=== PATIENT | female | born 1950 | race Hispanic/Latino ===

== ENCOUNTER 2017-05-27 10:16 | Emergency (ER) | payer MEDICARE, MEDICAID ==
[2017-05-27 10:16] VITALS: BMI 30.7
[2017-05-27 10:23] VITALS: O2SAT 99
--- NOTE | 2017-05-27 11:33 | RAD ---
PROCEDURE: Radiographs of the Right Shoulder HISTORY: Status post fall with pain COMPARISON: No prior. FINDINGS: BONES: No evidence of acute displaced fracture nor dislocation. The osseous structures intact. JOINTS: There appears to be some very minor narrowing of the right acromioclavicular joint. . SOFT TISSUES: Normal. OTHER FINDINGS: Minor multilevel degenerative spondylosis of the thoracic spine IMPRESSION: No evidence acute displaced fracture nor dislocation.
--- NOTE | 2017-05-27 12:13 | C.PDOC ---
History Of Present Illness 67 yr old female with PMHx of schizophrenia, hypercholesterolemia and diabetes, presents to the ER with complaints of right shoulder pain secondary to trip and fall . Family states the patient is supposed to be using a walker to ambulate but went to the bathroom without it and fell. Denies using any pain medicine. Also denies head injury, LOC, chest pain, SOB, back pain, weakness or numbness. Time Seen by Provider: 05/27/17 10:53 Chief Complaint (Nursing): Trauma History Per: Patient, Family History/Exam Limitations: no limitations Onset/Duration Of Symptoms: Sudden Onset (PSYCH ASSISTANT) Severity: Moderate Exacerbating Factor(s): Movement Past Medical History Reviewed: Historical Data, Nursing Documentation, Vital Signs Vital Signs: Last Vital Signs Temp 98.2 F 05/27/17 12:20 Pulse 78 05/27/17 12:20 Resp 16 05/27/17 12:20 BP 149/70 05/27/17 12:20 Pulse Ox 99 05/27/17 12:31 - Medical History PMH: Hypercholesterolemia, Schizophrenia Surgical History: Endoscopy Family History: States: No Known Family Hx - Social History Hx Alcohol Use: No Hx Substance Use: No - Immunization History Hx Tetanus Toxoid Vaccination: No Hx Influenza Vaccination: No Hx Pneumococcal Vaccination: No Review Of Systems Except As Marked, All Systems Reviewed And Found Negative. Cardiovascular: Negative for: Chest Pain Respiratory: Negative for: Shortness of Breath Musculoskeletal: Positive for: Shoulder Pain (Right ). Negative for: Neck Pain , Back Pain Neurological: Negative for: Weakness, Numbness Physical Exam - Physical Exam Appears: Non-toxic, No Acute Distress Skin: Warm, Dry, No Rash Head: Atraumatic, Normacephalic Eye(s): bilateral: Normal Inspection Oral Mucosa: Moist Neck: Normal, Normal ROM, Supple Chest: Symmetrical, No Tenderness Cardiovascular: Rhythm Regular, No Murmur Respiratory: Normal Breath Sounds, No Rales, No Rhonchi, No Wheezing Gastrointestinal/Abdominal: Normal Exam, Soft, No Tenderness, No Guarding, No Rebound Back: Normal Inspection, No CVA Tenderness, No Vertebral Tenderness, No Decreased ROM, No Paraspinal Tenderness Extremity: Tenderness (To the anterior and lateral aspect of right shoulder), Capillary Refill (<2), No Deformity, No Swelling, Other (Right Shoulder: Pain with abduction. Right hand, wrist and elbow non tender with full ROM. ) Extremity: Bilateral: Hips Non-Tender Pulses: Left Radial: Normal, Right Radial: Normal Neurological/Psych: Oriented x3, Normal Speech, Other ((+) Flat affect. ) Gait: Steady ED Course And Treatment O2 Sat by Pulse Oximetry: 99 (RA) Pulse Ox Interpretation: Normal - Other Rad X-Ray - Right Shoulder X-Ray: Viewed By Me, Read By Radiologist Interpretation: PROCEDURE: Radiographs of the Right Shoulder. HISTORY: Status post fall with pain. COMPARISON: No prior. FINDINGS: BONES: No evidence of acute displaced fracture nor dislocation. The osseous structures intact. JOINTS: There appears to be some very minor narrowing of the right acromioclavicular joint. . SOFT TISSUES: Normal. OTHER FINDINGS: Minor multilevel degenerative spondylosis of the thoracic spine. IMPRESSION: No evidence acute displaced fracture nor dislocation. Medical Decision Making Medical Decision Making: PLAN: * X-Ray - Right Shoulder * Tylenol PO Xray reviewed and read by radiologist, negative for fracture or dislocation. Arm sling applied. Patient ambulatory in no distress. She is stable for discharge. Recommend analgesics, ice and rest. Follow up with ortho if the pain persists Disposition - Disposition Referrals: Patrick Elena III, MD [Staff Provider] - Disposition: HOME/ ROUTINE Disposition Time: 12:11 Condition: STABLE Additional Instructions: Take tylenol or ibuprofen as needed for pain Xray reviewed showing no acute fracture or dislocation. Advise to rest, ice and elevate joint. If pain persists, follow up with orthopedic in one week. Instructions: Shoulder Pain (ED) Forms: [employer] (Romanian) - POA Present On Arrival: None - Clinical Impression Clinical Impression: Shoulder contusion - PA / [employer] / Resident Statement MD/DO has reviewed & agrees with the documentation as recorded. - Scribe Statement The provider has reviewed the documentation as recorded by the Scribe Kristel Singh All medical record entries made by the Scribe were at my direction and personally dictated by me. I have reviewed the chart and agree that the record accurately reflects my personal performance of the history, physical exam, medical decision making, and the department course for this patient. I have also personally directed, reviewed, and agree with the discharge instructions and disposition.
[2017-05-27 12:21] VITALS: BP 149/70; PULSE 78; RESP 16; TEMP 98.2
== END 2017-05-27 12:20 | disposition home or self-care (01) ==
LOC: C.ER 10:16
DX: S40.011A Contusion of right shoulder, initial encounter (principal); W01.0XXA Fall on same level from slipping, tripping and stumbling without subsequent striking against object, initial encounter; Y92.008 Other place in unspecified non-institutional (private) residence as the place of occurrence of the external cause

== ENCOUNTER 2017-08-25 21:27 | Inpatient (IN) | payer MEDICARE, MEDICAID ==
[2017-08-25 21:27] VITALS: BMI 30.7
[2017-08-25] MEDS ORDERED: Sodium Chloride 0.9% 1,000 ML IV ONE (22:31)
[2017-08-25] MEDS ORDERED: Iohexol 240 (50 ml) PO ONE (22:32)
[2017-08-25] MEDS ORDERED: Sodium Chloride 0.9% 1,000 ML ONE (22:41)
[2017-08-25] MEDS ORDERED: Iohexol 240 (50 ml) ONE (22:41)
--- NOTE | 2017-08-25 22:46 | C.PDOC ---
History Of Present Illness 67 y/o female c/o abdominal pain for 2 days and chest pain since tonight. Symptoms are associated with nausea and vomiting. Denies fever, chills, SOB, or any other complaints. Time Seen by Provider: 08/25/17 23:05 Chief Complaint (Nursing): Chest Pain History Per: Patient History/Exam Limitations: no limitations Onset/Duration Of Symptoms: Days (2) Current Symptoms Are (Timing): Still Present Severity: Mild Quality: "Pain" Associated Symptoms: Nausea Recent travel outside of the [place]: No Additional History Per: Patient Past Medical History Reviewed: Historical Data, Nursing Documentation, Vital Signs Vital Signs: Last Vital Signs Temp 98.2 F 08/25/17 21:34 Pulse 80 08/26/17 03:51 Resp 22 08/26/17 03:51 BP 185/79 H 08/26/17 04:03 Pulse Ox 97 08/26/17 03:51 - Medical History PMH: Hypercholesterolemia, Schizophrenia Denies: Chronic Kidney Disease Surgical History: Endoscopy Family History: States: Unknown Family Hx - Social History Hx Alcohol Use: No Hx Substance Use: No - Immunization History Hx Tetanus Toxoid Vaccination: No Hx Influenza Vaccination: No Hx Pneumococcal Vaccination: No Review Of Systems Except As Marked, All Systems Reviewed And Found Negative. Constitutional: Negative for: Fever, Chills Cardiovascular: Positive for: Chest Pain Respiratory: Negative for: Shortness of Breath Gastrointestinal: Positive for: Nausea, Vomiting, Abdominal Pain Physical Exam - Physical Exam Appears: Well, Non-toxic Skin: Normal Color Eye(s): bilateral: Normal Inspection, PERRL, EOMI Nose: Normal Oral Mucosa: Moist, No Dry Throat: Normal Neck: Normal Chest: Symmetrical, No Deformity Cardiovascular: Rhythm Regular, No Edema, No Friction Rub, No Murmur Respiratory: Normal Breath Sounds Gastrointestinal/Abdominal: Tenderness (tenderness beth. upper quadrant and LLQ area), No Distention, No Guarding, No Rebound, No Ascites Back: Normal Inspection Extremity: Normal ROM, No Tenderness, No Pedal Edema Neurological/Psych: Oriented x3 ED Course And Treatment - Laboratory Results Result Diagrams: 08/25/17 22:55 08/25/17 22:55 ECG: Interpreted By Me, Viewed By Me ECG Rhythm: Sinus Rhythm, L BBB ECG Interpretation: No Acute Changes, Abnormal Interpretation Of ECG: NSR, LBBB, no significnt change from old tracings. abnormal tracings Rate From EC O2 Sat by Pulse Oximetry: 98 Pulse Ox Interpretation: Normal Medical Decision Making Medical Decision Making: Plans: * CT Abd/Pel with contrast * CT Chest w/o * EKG * Omnipaque * Toradol * Reglan * Zofran * IV fluids * UA Disposition Discussed With DrAnju: Simran Champion Comment: admit to medical try on [facility]- Dr. David duron Doctor Will See Patient In The: Hospital Counseled Patient/Family Regarding: Diagnosis - Disposition Referrals: Dominik Duron MD [Staff Provider] - Disposition: HOSPITALIZED Disposition Time: 04:09 Condition: STABLE Forms: [employer] (Norwegian) - POA Present On Arrival: None - Clinical Impression Clinical Impression: Abdominal pain, Persistent vomiting, Chronic schizophrenia, Chest pain - Scribe Statement The provider has reviewed the documentation as recorded by the Scribe Linda aceves All medical record entries made by the Scribe were at my direction and personally dictated by me. I have reviewed the chart and agree that the record accurately reflects my personal performance of the history, physical exam, medical decision making, and the department course for this patient. I have also personally directed, reviewed, and agree with the discharge instructions and disposition.
[2017-08-25 22:57] LABS: BASO # 0.1 K/uL (0.0-0.2); BASO % 0.5 % (0.0-2.0); EOS % 0.4 % (0.0-4.0); HEMATOCRIT 47.1 % (34.0-47.0); LYMPH # 3.5 K/uL (1.0-4.3); LYMPH % 30.5 % (20.0-40.0); MEAN CELL VOLUME 84.7 fL (81.0-99.0); MEAN CORPUSCULAR HEMOGLOBIN 28.1 pg (27.0-31.0); MEAN CORPUSCULAR HGB CONC 33.2 g/dL (33.0-37.0); MEAN PLATELET VOLUME 9.3 fL (7.2-11.7); MONO # 0.4 K/uL (0.0-0.8); MONO % 3.8 % (0.0-10.0); NRBC % 0.3 % (0.0-2.0); RED CELL DISTRIBUTION WIDTH 12.6 % (11.5-14.5); WHITE BLOOD COUNT 11.5 K/uL (4.8-10.8)
[2017-08-25 23:09] LABS: ALKALINE PHOSPHATASE 65 U/L (38-126); ALT/SGPT 117 U/L (9-52); AST/SGOT 55 U/L (14-36); BILIRUBIN,TOTAL 2.1 mg/dL (0.2-1.3); BLOOD UREA NITROGEN 14 mg/dL (7-17); CALCIUM 9.1 mg/dl (8.6-10.4); CARBON DIOXIDE 24 mmol/L (22-30); CHLORIDE 98 mmol/L (98-107); GFR AFRICAN-AMERICAN > 60; GLUCOSE,RANDOM 134 mg/dL (65-105); POTASSIUM 3.7 mmol/L (3.6-5.2); SODIUM 136 mmol/L (132-148); TOTAL PROTEIN 8.4 g/dL (6.3-8.3)
[2017-08-25 23:16] LABS: ALB/GLOB RATIO 1.2 (1.0-2.1)
[2017-08-26] MEDS ORDERED: Iodixanol 320 MG/ML 100 ML BOTTLE IV ONE ×2 (00:55→01:49)
[2017-08-26] MEDS ORDERED: Morphine 4 MG/ML VIAL IV ONE (01:37)
--- NOTE | 2017-08-26 02:36 | CT ---
EXAM: CT Chest With Intravenous Contrast CT Abdomen and Pelvis With Intravenous Contrast EXAM DATE/TIME: 08/25/2017 10:32 PM CLINICAL HISTORY: 67 years old, female; Pain; Abdominal pain; Generalized; Other: Left chest pain; Patient HX: Pt is unable to tolerate oral contrast & unable to her her breath; Additional info: Abd pain/ vomiting TECHNIQUE: Axial computed tomography images of the chest, abdomen and pelvis with intravenous contrast. All CT scans at this facility use one or more dose reduction techniques, viz.: automated exposure control; ma/kV adjustment per patient size (including targeted exams where dose is matched to indication; i.e. head); or iterative reconstruction technique. All CT scans at this facility use one or more dose reduction techniques, viz.: automated exposure control; ma/kV adjustment per patient size (including targeted exams where dose is matched to indication; i.e. head); or iterative reconstruction technique. Coronal and sagittal reformatted images were created and reviewed. CONTRAST: 100 mL of visipaque administered intravenously. COMPARISON: No relevant prior studies available. FINDINGS: LIMITATIONS: Moderate streak/motion artifact. CHEST: LUNGS: Incidental 7 x 3.5 mm noncalcified pulmonary nodule in the left lung base, image 63/series 3. In low-risk patients (minimal or absent history of smoking or other known risk factors), no follow-up is necessary. For high-risk patients (history of smoking or other known risk factors), an optional chest CT at 12 months could be performed. Mild groundglass density in the lungs bilaterally, dependent in location, most likely representing diffuse dependent atelectasis. No evidence of diffuse pulmonary vascular congestion. PLEURAL SPACE: No pneumothorax or significant pleural effusions seen. HEART: Mild cardiomegaly. Coronary artery calcification. Small amount of fluid in the superior pericardial recess. No evidence of a circumferential pericardial effusion. ABDOMEN: LIVER: Fatty infiltration of the liver. More focal area of low density in the liver, abutting the falciform ligament, most compatible with focal fatty infiltration. GALLBLADDER AND BILE DUCTS: No CT evidence of acute cholecystitis. No evidence of significant biliary ductal dilatation. PANCREAS: No CT evidence of acute pancreatitis. SPLEEN: No acute abnormality of the spleen identified. ADRENALS: No acute abnormality of the adrenal glands. KIDNEYS AND URETERS: 2.4 x 2 cm right renal lesion. This appears mainly composed of fat tissue, with a CT attenuation of -32 Hounsfield units, but it also contains small areas of soft tissue within it. Most likely, this represents a renal angiomyolipoma. No acute abnormality of the kidneys identified. STOMACH AND BOWEL: Colon is mostly decompressed, which limits evaluation for wall thickening. Bowel is otherwise unremarkable in appearance. No acute abnormality of the stomach or duodenum identified. No evidence of bowel obstruction. APPENDIX: Appendix is seen, and is within normal limits in appearance. PELVIS: BLADDER: No acute abnormality of the bladder identified. REPRODUCTIVE: Uterus is surgically absent. No evidence of large adnexal masses. CHEST, ABDOMEN and PELVIS: INTRAPERITONEAL SPACE: No evidence of free intraperitoneal air or fluid. BONES/JOINTS: Bony structures appear demineralized. SOFT TISSUES: No acute abnormality of the visualized soft tissues is seen. VASCULATURE: Exam is nondiagnostic for the detection of thoracic aortic dissection and pulmonary emboli because of suboptimal enhancement of the aorta and pulmonary arteries. No evidence of abdominal aortic aneurysm. LYMPH NODES: No evidence of diffuse lymphadenopathy. IMPRESSION: - No evidence of significant acute process. No definite cause for pain identified. - Fat containing lesion in the right kidney, most likely an angiomyolipoma. - Incidental 5 mm pumonary nodule. See recommendations above. - See above for remaining findings.
--- NOTE | 2017-08-26 08:21 | CP.PCM.CON ---
History of Present Illness - History of Present Illness History of Present Illness: patient seen/examined. consult to follow. longstanding diabetes mellitus, LBBB on EKG. complains of left sided chest pain. Recommend stress test. Past Patient History - Infectious Disease Hx of Infectious Diseases: None - Past Medical History & Family History Past Medical History?: Yes - Past Social History Smoking Status: Never Smoked - CARDIAC Hx Cardiac Disorders: Yes Hx Hypercholesterolemia: Yes - PULMONARY Hx Respiratory Disorders: No Other/Comment: NOTED SPASTIMATIC BODY MOVEMENTS- PT. ON PSY. MEDS - NEUROLOGICAL Hx Neurological Disorder: Yes Hx Dizziness: Yes - HEENT Hx HEENT Problems: No - RENAL Hx Chronic Kidney Disease: No - ENDOCRINE/METABOLIC Hx Endocrine Disorders: Yes Hx Diabetes Mellitus Type 2: Yes - HEMATOLOGICAL/ONCOLOGICAL Hx Blood Disorders: No - INTEGUMENTARY Hx Dermatological Problems: No - MUSCULOSKELETAL/RHEUMATOLOGICAL Hx Musculoskeletal Disorders: No Hx Falls: Yes - GASTROINTESTINAL Hx Gastrointestinal Disorders: Yes Other/Comment: DYSPHAGIA - GENITOURINARY/GYNECOLOGICAL Hx Genitourinary Disorders: No - PSYCHIATRIC Hx Psychophysiologic Disorder: Yes Hx Schizophrenia: Yes Hx Substance Use: No - SURGICAL HISTORY Hx Surgeries: Yes Hx Hysterectomy: Yes - ANESTHESIA Hx Anesthesia: Yes Hx Anesthesia Reactions: No Hx Malignant Hyperthermia: No Meds Allergies/Adverse Reactions: Allergies Allergy/AdvReac Type Severity Reaction Status Date / Time No Known Allergies Allergy Verified 08/25/17 21:40 - Medications Medications: Current Medications Sodium Chloride (Sodium Chloride 0.9%) 1,000 mls @ 100 mls/hr IV .Q10H ONE Stop: 08/26/17 08:30 Last Admin: 08/25/17 22:55 Dose: 100 mls/hr Results - Vital Signs Recent Vital Signs: Last Vital Signs Temp 97.6 F 08/26/17 07:46 Pulse 80 08/26/17 07:46 Resp 20 08/26/17 07:46 BP 183/84 H 08/26/17 07:46 Pulse Ox 95 08/26/17 07:46 - Labs Result Diagrams: 08/25/17 22:55 08/25/17 22:55 Labs: Laboratory Results - last 24 hr 08/25/17 08/25/17 08/26/17 22:55 22:55 07:03 WBC 11.5 H RBC 5.56 H Hgb 15.7 Hct 47.1 H MCV 84.7 D MCH 28.1 MCHC 33.2 RDW 12.6 Plt Count 301 MPV 9.3 Neut % (Auto) 64.8 Lymph % (Auto) 30.5 Kerr % (Auto) 3.8 Eos % (Auto) 0.4 Baso % (Auto) 0.5 Neut # 7.4 H Lymph # 3.5 Kerr # 0.4 Eos # 0.0 Baso # 0.1 Sodium 136 Potassium 3.7 Chloride 98 Carbon Dioxide 24 Anion Gap 17 BUN 14 Creatinine 0.5 L Est GFR ( Amer) > 60 Est GFR (Non-Af Amer) > 60 POC Glucose (mg/dL) 169 H Random Glucose 134 H Calcium 9.1 Total Bilirubin 2.1 H AST 55 H ALT 117 H Alkaline Phosphatase 65 Troponin I < 0.0120 Total Protein 8.4 H Albumin 4.5 Globulin 3.9 Albumin/Globulin Ratio 1.2 Lipase 110
--- NOTE | 2017-08-26 08:22 | CP.PCM.CON ---
History of Present Illness - History of Present Illness History of Present Illness: I was asked to provide evaluation by Dr Champion. Patient is a 67 year old female with PMH HTN, DM who presents with chest pain. The pain is described as epigastric, with radiation to the chest. There is burning of the chest. There is associated dyspnea. Symptoms improve with rest. Review of Systems - Constitutional Constitutional: absent: As Per HPI, Anorexia, Chills, Daytime Sleepiness, Excessive Sweating, Fatigue, Fever, Frequent Falls, Headache, Increased Appetite , Lethargy, Malaise, Night Sweats, Snoring, Sleep Apnea, Weight Gain, Weight Loss, Weakness, Other - EENT Eyes: absent: As Per HPI, Blind Spots, Blurred Vision, Change in Vision, Decreased Night Vision, Diplopia, Discharge, Dry Eye, Exophthalmos, Floaters, Irritation, Itchy Eyes, Loss of Peripheral Vision, Pain, Photophobia, Requires Corrective Lenses, Sees Flashes, Spots in Vision, Tunnel Vision, Other Visual Disturbances, Loss of Vision, Other Ears: absent: As Per HPI, Decreased Hearing, Ear Discharge, Ear Pain, Tinnitus, Abnormal Hearing, Disequilibrium, Dizziness, Other Nose/Mouth/Throat: absent: As Per HPI, Epistaxis, Nasal Congestion, Nasal Discharge, Nasal Obstruction, Nasal Trauma, Nose Pain, Post Nasal Drip, Sinus Pain, Sinus Pressure, Bleeding Gums, Change in Voice, Dental Pain, Dry Mouth, Dysphagia, Halitosis, Hoarsness, Lip Swelling, Mouth Lesions, Mouth Pain, Odynophagia, Sore Throat, Throat Swelling, Tongue Swelling, Facial Pain, Neck Pain, Neck Mass, Other - Breasts Breasts: absent: As Per HPI, Change in Shape, Mass, Pain, Nipple Discharge, Nipple Inversion, Skin Changes, Swelling, Other - Cardiovascular Cardiovascular: Chest Pain, Dyspnea - Respiratory Respiratory: absent: As Per HPI, Cough, Dyspnea, Hemoptysis, Dyspnea on Exertion , Wheezing, Snoring, Stridor, Pain on Inspiration, Chest Congestion, Excessive Mucous Production, Change in Mucous Color, Pain with Coughing, Other - Gastrointestinal Gastrointestinal: absent: As Per HPI, Abdominal Pain, Belching, Bloating, Change in Bowel Habits, Change in Stool Character, Coffee Ground Emesis, Constipation, Cramping, Diarrhea, Dyspepsia, Dysphagia, Early Satiety, Excessive Flatus, Fecal Incontinence, Heartburn, Hematemesis, Hematochezia, Loose Stools, Melena, Nausea, Odynophagia, Temesmus, Vomiting, Other - Genitourinary Genitourinary: absent: As Per HPI, Change in Urinary Stream, Difficulty Urinating, Dysuria, Flank Pain, Hematuria, Pyuria, Nocturia, Urinary Incontinence, Urinary Frequency, Urinary Hesitance, Urinary Urgency, Voiding Freq/Small Amts, Freq UTI, Hx Renal/Bladder Calculi, Hx /Renal Surgery, Bladder Distension, Other - Musculoskeletal Musculoskeletal: absent: As Per HPI, Abnormal Gait, Arthralgias, Atrophy, Back Pain, Deformity, Joint Swelling, Limited Range of Motion, Loss of Height, Muscle Cramps, Muscle Weakness, Myalgias, Neck Pain, Numbness, Radiating Pain into Limb, Stiffness, Tingling, Other - Integumentary Integumentary: absent: As Per HPI, Acne, Alopecia, Bleeding Lesions, Change in Hair, Change in Nails, Change in Pigmentation, Changing Lesions, Dry Skin, Erythema, Furuncle, Hirsutism, Lesions, New Lesions, Non-Healing Lesions, Photosensitivity, Pruritus, Rash, Skin Pain, Skin Ulcer, Sores, Striae, Swelling , Unusual Bruising, Wounds, Jaundice, Other - Neurological Neurological: absent: As Per HPI, Abnormal Gait, Abnormal Hearing, Abnormal Movements, Abnormal Speech, Behavioral Changes, Burning Sensations, Confusion, Convulsions, Disequilibrium, Dizziness, Numbness, Focal Weakness, Frequent Falls , Headaches, Lack of Coordination, Loss of Vision, Memory Loss, Paresthesias, Radicular Pain, Restless Legs, Sensory Deficit, Syncope, Tingling, Tremor, Vertigo, Weakness, Other Visual Disturbances, Other - Psychiatric Psychiatric: absent: As Per HPI, Abnormal Sleep Pattern, Anhedonia, Anxiety, Auditory Hallucinations, Behavioral Changes, Change in Appetite, Change in Libido, Confusion, Depression, Difficulty Concentrating, Hallucinations, Homicidal Ideation, Hopelessness, Irritability, Memory Loss, Mood Swings, Panic Attacks, Paranoia, Suicidal Ideation, Visual Hallucinations, Tactile Hallucinations, Other - Endocrine Endocrine: absent: As Per HPI, Change in Body Appearance, Change in Libido, Cold Intolorance, Deepening of Voice, Excessive Sweating, Fatigue, Flushing, Heat Intolorance, Increase in Ring/Shoe/Hat Size, Palpitations, Polydipsia, Polyphagia, Polyuria, Other - Hematologic/Lymphatic Hematologic: absent: As Per HPI, Easy Bleeding, Easy Bruising, Lymphadenopathy, Other Past Patient History - Infectious Disease Hx of Infectious Diseases: None - Past Medical History & Family History Past Medical History?: Yes - Past Social History Smoking Status: Never Smoked - CARDIAC Hx Cardiac Disorders: Yes Hx Hypercholesterolemia: Yes - PULMONARY Hx Respiratory Disorders: No Other/Comment: NOTED SPASTIMATIC BODY MOVEMENTS- PT. ON PSY. MEDS - NEUROLOGICAL Hx Neurological Disorder: Yes Hx Dizziness: Yes - HEENT Hx HEENT Problems: No - RENAL Hx Chronic Kidney Disease: No - ENDOCRINE/METABOLIC Hx Endocrine Disorders: Yes Hx Diabetes Mellitus Type 2: Yes - HEMATOLOGICAL/ONCOLOGICAL Hx Blood Disorders: No - INTEGUMENTARY Hx Dermatological Problems: No - MUSCULOSKELETAL/RHEUMATOLOGICAL Hx Musculoskeletal Disorders: No Hx Falls: Yes - GASTROINTESTINAL Hx Gastrointestinal Disorders: Yes Other/Comment: DYSPHAGIA - GENITOURINARY/GYNECOLOGICAL Hx Genitourinary Disorders: No - PSYCHIATRIC Hx Psychophysiologic Disorder: Yes Hx Schizophrenia: Yes Hx Substance Use: No - SURGICAL HISTORY Hx Surgeries: Yes Hx Hysterectomy: Yes - ANESTHESIA Hx Anesthesia: Yes Hx Anesthesia Reactions: No Hx Malignant Hyperthermia: No Meds Home Medications: Home Medication List Medication Instructions Recorded Confirmed Type Acetaminophen [Tylenol 325mg tab] 650 mg PO STAT tab 08/30/17 Rx Aspirin [Ecotrin] 81 mg PO DAILY tabec 08/30/17 Rx Bethanechol [Urecholine] 25 mg PO BID tab 08/30/17 Rx Glimepiride [amaRYL] 4 mg PO BIDAC tab 08/30/17 Rx Insulin Aspart [Novolog] See Protocol SC ACHS 30 Days #1 ml 08/30/17 Rx Lactulose [Enulose] 20 gm PO HS PRN #1 udc 08/30/17 Rx Ondansetron [Zofran] 4 mg PO Q8H PRN #1 tab 08/30/17 Rx Pantoprazole [Protonix] 40 mg PO DAILY #1 ect 08/30/17 Rx Perphenazine 16 mg PO HS tab 08/30/17 Rx Polyethylene Glycol 3350 [Miralax] 17 gm PO DAILY packet 08/30/17 Rx Trihexyphenidyl [Artane] 2 mg PO BID tab 08/30/17 Rx clonazePAM [Klonopin] 0.5 mg PO TID tab 08/30/17 Rx metFORMIN [glucOPHAGE] 500 mg PO DAILY@0800 tab 08/30/17 Rx Allergies/Adverse Reactions: Allergies Allergy/AdvReac Type Severity Reaction Status Date / Time No Known Allergies Allergy Verified 08/25/17 21:40 - Medications Medications: Current Medications Sodium Chloride (Sodium Chloride 0.9%) 1,000 mls @ 100 mls/hr IV .Q10H ONE Stop: 08/26/17 08:30 Last Admin: 08/25/17 22:55 Dose: 100 mls/hr Physical Exam - Constitutional Appears: Non-toxic - Head Exam Head Exam: NORMAL INSPECTION - Eye Exam Eye Exam: Normal appearance - ENT Exam ENT Exam: Mucous Membranes Moist - Neck Exam Neck exam: Positive for: Full Rom - Respiratory Exam Respiratory Exam: NORMAL BREATHING PATTERN - Cardiovascular Exam Cardiovascular Exam: REGULAR RHYTHM - GI/Abdominal Exam GI & Abdominal Exam: Normal Bowel Sounds - Rectal Exam Rectal Exam: Deferred - Extremities Exam Extremities exam: Positive for: pedal edema - Back Exam Back exam: NORMAL INSPECTION - Neurological Exam Neurological exam: Alert - Psychiatric Exam Psychiatric exam: Normal Affect - Skin Skin Exam: Normal Color Results - Vital Signs Recent Vital Signs: Last Vital Signs Temp 97.6 F 08/26/17 07:46 Pulse 80 08/26/17 07:46 Resp 20 08/26/17 07:46 BP 183/84 H 08/26/17 07:46 Pulse Ox 95 08/26/17 07:46 - Labs Result Diagrams: 08/30/17 11:14 08/30/17 11:14 Labs: Laboratory Results - last 24 hr 08/25/17 08/25/17 08/26/17 22:55 22:55 07:03 WBC 11.5 H RBC 5.56 H Hgb 15.7 Hct 47.1 H MCV 84.7 D MCH 28.1 MCHC 33.2 RDW 12.6 Plt Count 301 MPV 9.3 Neut % (Auto) 64.8 Lymph % (Auto) 30.5 [place] % (Auto) 3.8 Eos % (Auto) 0.4 Baso % (Auto) 0.5 Neut # 7.4 H Lymph # 3.5 [place] # 0.4 Eos # 0.0 Baso # 0.1 Sodium 136 Potassium 3.7 Chloride 98 Carbon Dioxide 24 Anion Gap 17 BUN 14 Creatinine 0.5 L Est GFR ( Amer) > 60 Est GFR (Non-Af Amer) > 60 POC Glucose (mg/dL) 169 H Random Glucose 134 H Calcium 9.1 Total Bilirubin 2.1 H AST 55 H ALT 117 H Alkaline Phosphatase 65 Troponin I < 0.0120 Total Protein 8.4 H Albumin 4.5 Globulin 3.9 Albumin/Globulin Ratio 1.2 Lipase 110 - EKG Data EKG Interpreted by: Myself EKG shows normal: Sinus rhythm Assessment & Plan (1) HTN (hypertension) Assessment and Plan: blood pressure control Status: Acute (2) Diabetes mellitus Assessment and Plan: risk factor for CAD Status: Acute (3) Chest pain Assessment and Plan: given symptoms and risk factors, recommend nuclear stress test. daughter understands Status: Acute
[2017-08-26] MEDS ORDERED: Aminophylline 25 mg/ml Inj ONE (09:51)
--- NOTE | 2017-08-26 13:19 | CP.PCM.CON ---
History of Present Illness - History of Present Illness History of Present Illness: 67 years old female with hx DM, HLD, paranoid schizoprenia, presents for chest pain with nausea, vomiting, and abdominal pain. Pt is a poor historian, history primarily obtained form prior charts and daughter. As per daughter, pt started having nausea and bilious, but non-bloody vomiting episodes since yesterday. Pt has also been complaining of vague lower abdominal pain for past 3 days, not related to eating. Has had decreased appetite and dyspepsia, but denies fever, chills, sob, hematemesis, cough, diarrhea, constipation, hematochezia, melena, jaundice. Last BM yesterday. Pt had a previous EGD at [facility] on 07/11/2016, for dysphagia, found to have chronic active gastritis, positive for H Pylori. As per daughter, pt was treated with antibiotics. But unsure if pt has a GI doctor or was re-tested post treatment. No prior colonoscopy. Denies sick contacts or recent travel. In ED, pt hypertensive but otherwise stable, trop neg x 1, elevated LFTs: AST 55 , ALT 117, t.bili 2.1. Previously in 07/2016, t bili 1.5, AST 93, ALT 141. As per daughter, pt has had transaminitis in the past, due to multiple antipsychotic and oral antidiabetic meds like Clonazepam, Perphenazine, Acarbose. Today, pt had one small episode of vomiting while doing the stress test this AM. Pt currently complains of some lower abdominal pain, but denies nausea. PMH: DM, HLD, paranoid schizophrenia PSH: hysterectomy ALL: NKA FH: no history of colon cancer SH: Lives with in house. Immobile patient, mostly in bed. Can walk. Denies alcohol, tobacco, marijuana use. Review of Systems - Review of Systems All systems: reviewed and no additional remarkable complaints except Review of Systems: as per HPI Past Patient History - Infectious Disease Hx of Infectious Diseases: None - Past Medical History & Family History Past Medical History?: Yes - Past Social History Smoking Status: Never Smoked - CARDIAC Hx Cardiac Disorders: Yes Hx Hypercholesterolemia: Yes - PULMONARY Hx Respiratory Disorders: No Other/Comment: NOTED SPASTIMATIC BODY MOVEMENTS- PT. ON PSY. MEDS - NEUROLOGICAL Hx Neurological Disorder: Yes Hx Dizziness: Yes - HEENT Hx HEENT Problems: No - RENAL Hx Chronic Kidney Disease: No - ENDOCRINE/METABOLIC Hx Endocrine Disorders: Yes Hx Diabetes Mellitus Type 2: Yes - HEMATOLOGICAL/ONCOLOGICAL Hx Blood Disorders: No - INTEGUMENTARY Hx Dermatological Problems: No - MUSCULOSKELETAL/RHEUMATOLOGICAL Hx Musculoskeletal Disorders: No Hx Falls: Yes - GASTROINTESTINAL Hx Gastrointestinal Disorders: Yes Other/Comment: DYSPHAGIA - GENITOURINARY/GYNECOLOGICAL Hx Genitourinary Disorders: No - PSYCHIATRIC Hx Psychophysiologic Disorder: Yes Hx Schizophrenia: Yes Hx Substance Use: No - SURGICAL HISTORY Hx Surgeries: Yes Hx Hysterectomy: Yes - ANESTHESIA Hx Anesthesia: Yes Hx Anesthesia Reactions: No Hx Malignant Hyperthermia: No Meds Allergies/Adverse Reactions: Allergies Allergy/AdvReac Type Severity Reaction Status Date / Time No Known Allergies Allergy Verified 08/25/17 21:40 - Medications Medications: Current Medications Aspirin (Ecotrin) 81 mg PO DAILY [facility] Last Admin: 08/26/17 11:45 Dose: 81 mg Clonazepam (Klonopin) 0.5 mg PO TID [facility] Glimepiride (Amaryl) 4 mg PO BIDAC [facility] Last Admin: 08/26/17 11:45 Dose: 4 mg Heparin Sodium (Porcine) (Heparin) 5,000 units SC Q12 [facility] Home Med (Patient's Own Medication) 1 tab PO TID [facility] Metformin HCl (Glucophage) 500 mg PO DAILY@0800 [facility] Perphenazine (Perphenazine) 16 mg PO HS [facility] Trihexyphenidyl HCl (Artane) 2 mg PO BID [facility] Last Admin: 08/26/17 11:45 Dose: 2 mg Physical Exam - Constitutional Appears: Older Than Stated Age, Chronically Ill - Head Exam Head Exam: ATRAUMATIC, NORMOCEPHALIC - Eye Exam Eye Exam: EOMI Pupil Exam: PERRL - ENT Exam ENT Exam: Mucous Membranes Moist - Respiratory Exam Respiratory Exam: Clear to Auscultation Bilateral - Cardiovascular Exam Cardiovascular Exam: RRR, +S1, +S2 - GI/Abdominal Exam GI & Abdominal Exam: Normal Bowel Sounds, Tenderness. absent: Distended, Guarding, Rebound, Rigid Additional comments: TTP diffusely, more in epigastric area. - Extremities Exam Extremities exam: Negative for: calf tenderness, pedal edema - Back Exam Back exam: absent: CVA tenderness (L), CVA tenderness (R) - Neurological Exam Neurological exam: Alert, Oriented x3 - Skin Skin Exam: Dry, Warm Results - Vital Signs Recent Vital Signs: Last Vital Signs Temp 97.6 F 08/26/17 07:46 Pulse 80 08/26/17 07:46 Resp 20 08/26/17 07:46 BP 183/84 H 08/26/17 07:46 Pulse Ox 95 08/26/17 07:46 - Labs Result Diagrams: 08/25/17 22:55 08/25/17 22:55 Labs: Laboratory Results - last 24 hr 08/25/17 08/25/17 08/26/17 22:55 22:55 07:03 WBC 11.5 H RBC 5.56 H Hgb 15.7 Hct 47.1 H MCV 84.7 D MCH 28.1 MCHC 33.2 RDW 12.6 Plt Count 301 MPV 9.3 Neut % (Auto) 64.8 Lymph % (Auto) 30.5 [place] % (Auto) 3.8 Eos % (Auto) 0.4 Baso % (Auto) 0.5 Neut # 7.4 H Lymph # 3.5 [place] # 0.4 Eos # 0.0 Baso # 0.1 Sodium 136 Potassium 3.7 Chloride 98 Carbon Dioxide 24 Anion Gap 17 BUN 14 Creatinine 0.5 L Est GFR ( Amer) > 60 Est GFR (Non-Af Amer) > 60 POC Glucose (mg/dL) 169 H Random Glucose 134 H Calcium 9.1 Total Bilirubin 2.1 H AST 55 H ALT 117 H Alkaline Phosphatase 65 Troponin I < 0.0120 Total Protein 8.4 H Albumin 4.5 Globulin 3.9 Albumin/Globulin Ratio 1.2 Lipase 110 08/26/17 12:28 WBC RBC Hgb Hct MCV MCH MCHC RDW Plt Count MPV Neut % (Auto) Lymph % (Auto) [place] % (Auto) Eos % (Auto) Baso % (Auto) Neut # Lymph # [place] # Eos # Baso # Sodium Potassium Chloride Carbon Dioxide Anion Gap BUN Creatinine Est GFR ( Amer) Est GFR (Non-Af Amer) POC Glucose (mg/dL) 189 H Random Glucose Calcium Total Bilirubin AST ALT Alkaline Phosphatase Troponin I Total Protein Albumin Globulin Albumin/Globulin Ratio Lipase Assessment & Plan - Assessment and Plan (Free Text) Assessment: 67 years old female with PMH DM, schizophrenia, presents for nausea, vomiting, abdominal pain and elevated LFTs: Plan: - 2/2 likely usage of hepatotoxic drugs (clonazepam, acarbose, glimerperide and metformin) vs infectious vs autoimmune etiology vs GERD vs gastritis vs gastroenteritis - CT abd pelvis chest 08/25/17: fat containing lesion in right kidney. Incidental 5 mm pulm nodule. - EGD 07/11/2016: chronic active gastritis, + h. pylori. No intestinal metaplasia. - As per daughter, pt was treated with triple therapy for H.pylori. But not sure if she was tested after treatment. - Protonix IV daily, Zofran q6H - Pt passed bedside swallow eval - Hgb A1C, Hepatitis and autoimmune workup f/u - Consider different antipsychotic agents in light of transaminitis. Will discuss with GI fellow and attending, Dr Collins. Jovana Braun, PGY1 - Date & Time Date: 08/26/17 Time: 13:30
[2017-08-26 15:12] LABS: INR 1.1
[2017-08-26] MEDS: ACARBOSE 50 MG PO SCH (17:34)
--- NOTE | 2017-08-26 17:54 | CON ---
ADDENDUM This is addendum to physiatric consultation PHYSICAL EXAMINATION: VITAL SIGNS: 97.6, pulse rate is 80, blood pressure is 183/84, respirations 20, oxygen sat is 95%. LABORATORY DATA: Blood workup estes, we will check his thyroid. The patient has chronic history of depression, anxiety on multiple physic meds as well as B12 low level and folate. Folate is this part of the workup. Israel Tristan MD
[2017-08-26 19:18] LABS: THYROID STIMULATING HORMONE 0.37 mIU/L (0.46-4.68)
[2017-08-26 19:53] LABS: FOLATE 16.6 ng/mL
--- NOTE | 2017-08-27 02:09 | CON ---
PSYCHIATRIC CONSULTATION DATE: 08/26/2017 CHIEF COMPLAINT AND REASON FOR CONSULTATION: The patient is referred by Dr. Champion for evaluation and co-management. The patient has a long history of schizoaffective disorder, bipolar type, on multiple psych meds as well as history of diabetes. The patient has been my patient in the office for many many years and seen for meds management. HISTORY OF PRESENT ILLNESS: This is the case of a 67-year-old female who lives with her . The patient has been my patient for more than 10 years with history of schizoaffective disorder, bipolar type, has been maintained on Trilafon 16 mg at bedtime, Klonopin 0.5 mg 3 times a day, and Artane 2 mg b.i.d. The patient was brought in by the daughter as the patient has been complaining of abdominal pain, chest pain, and also may not be taking her psych medications faithfully. Her is currently at [facility] for subacute rehab due to cardiac problems and the patient needs constant assistance from her . According to the daughter, the patient has one daughter, the patient has been compliant with her medication, but lately has been missing some of her medications. Her blood sugar seems to be controlled and the patient is not eating well. The patient also wants to see her who is in the subacute rehab. She states that she is not eating well and also reports she has a poor appetite. The patient, on admission, was complaining of chest pain and nausea and vomiting. The patient was seen by Dr. Silva, warehouse and receiving supervisor, and undergoing cardiac workup. Psych estes, the patient is at her baseline, but redirectable and compliant with meds in the hospital. PAST PSYCHIATRIC HISTORY: As stated, has long history of schizoaffective disorder, bipolar type, the patient used to be treated by Dr. Yan. The patient has persistent delusions. She is the Governor's despite being . The patient also states she sees Dr. Yna daily. Dr. Yan is her doctor for many years, and claims her former MD is constantly talking to her. Her former doctor has gone into [facility]. PAST MEDICAL HISTORY: History of diabetes, history of cholesterol problems. ALLERGIES: THE PATIENT HAS NO KNOWN ALLERGIES. PSYCHOSOCIAL HISTORY: Denies any psychosocial history. The patient lives with her ;they have been for more than 45 years. They only have one daughter and the daughter is a teacher. The patient has been disabled due to her psych issues. CURRENT MEDICATIONS: List of current medication includes, Amaryl, Artane 2 mg b.i.d., aspirin, Glucophage, heparin, Klonopin 0.5 mg 3 times a day, and also perphenazine 16 mg at bedtime. I did try to change her to Seroquel recently, but the patient did not tolerate it well. LABORATORY DATA: On review of her labs, WBC is 11.5, H and H is 15.7/47.1. The patient's creatinine is 0.5. Her liver function test: AST 55, ALT is 117, lipase is 110. Her blood sugar, the last one is 189. The patient used to run sugars above 400 and 500 before, but seems to be controlled with current meds. REVIEW OF SYSTEMS: GENERAL: The patient is alert, oriented x3, screaming at times. This is close to her baseline. Seen with her daughter. The patient states she wants to see her . SKIN: No diaphoresis. HEENT: No headache. No dizziness. NECK: Supple. RESPIRATORY: No dyspnea. No chest pain. CARDIOVASCULAR: The palpitation was intact. GASTROINTESTINAL: No nausea, no vomiting. EXTREMITIES: The patient is moving extremities. MUSCULOSKELETAL: Feels weak. NEUROLOGIC: Alert, oriented x3. GENITOURINARY: No dysuria. MENTAL STATUS EXAMINATION: Elderly female of [place] descent, height 5 feet 1 inches, weighs 170 pounds, obese, oriented x3. Mood is anxious. Affect is reactive. Speech is spontaneous. Thought process coherent. Thought content: No suicidal or homicidal ideation. Has chronic delusions that she is the Governor's and she is talking to Dr. Yan every day. Attention and memory seems to be fair. Insight and judgment is fair. Impulse control is fair. IMPRESSION: Schizoaffective disorder, bipolar type as well as history of diabetes, chest pain. PLAN AND RECOMMENDATION: The patient is seen and meds reviewed. The patient is currently undergoing cardiac workup as well as gastrointestinal workup. Psych estes, we will keep her on the same medication; Trilafon 16 mg at bedtime, Klonopin 0.5 mg 3 times a day, and the Artane 2 mg b.i.d. These have been her medicines for years. The patient is at her baseline. She has some residual psychotic symptoms that has been persistent for years, but the patient is manageable. Also monitor blood sugar, I discussed with the patient and her daughter. I did suggest that the patient may go for subacute rehab at [facility] for reconditioning as well as the patient needs assistance at home. The patient cannot function by herself, needs constant redirection, given her the psych history. If she ever goes to [facility], I do suggest that she will be in a different floor and not with her , to give the a break. The patient's has been sick lately and has been having some heart problems. The patient needs somebody to monitor her meds as well as reconditioning while also recovers. The patient has agreed to go to [facility] as well as her daughter. There is no need to change her medications for now, but the patient just needs to make sure that she is taking her meds. She has been compliant for most of her medications, but with the loss of her being in the rehab, the patient may need to be in a structured setting. Israel Tristan MD CATHERINE
[2017-08-27] MEDS: ACARBOSE 50 MG PO SCH ×3 (09:00→17:26)
--- NOTE | 2017-08-27 09:06 | CP.PCM.PN ---
Subjective - Date & Time of Evaluation Date of Evaluation: 08/27/17 Time of Evaluation: 09:05 - Subjective Subjective: stress test reviewed. No evidence of myocardial ischemia Normal LV function. Objective - Vital Signs/Intake and Output Vital Signs (last 24 hours): Temp Pulse Resp BP Pulse Ox 98 F 89 20 159/78 H 95 08/26/17 23:11 08/26/17 23:11 08/26/17 23:11 08/26/17 23:11 08/26/17 23:11 Intake and Output: 08/27/17 08/27/17 06:59 18:59 Intake Total 250 Balance 250 - Medications Medications: Current Medications Aspirin (Ecotrin) 81 mg PO DAILY [facility] Last Admin: 08/26/17 11:45 Dose: 81 mg Clonazepam (Klonopin) 0.5 mg PO TID [facility] Last Admin: 08/26/17 17:35 Dose: 0.5 mg Glimepiride (Amaryl) 4 mg PO BIDAC [facility] Last Admin: 08/27/17 08:25 Dose: 4 mg Heparin Sodium (Porcine) (Heparin) 5,000 units SC Q12 [facility] Home Med (Patient's Own Medication) 1 tab PO TIDCC [facility] Last Admin: 08/26/17 17:34 Dose: 1 tab Metformin HCl (Glucophage) 500 mg PO DAILY@0800 [facility] Last Admin: 08/27/17 08:35 Dose: 500 mg Ondansetron HCl (Zofran Inj) 4 mg IVP Q6H [facility] Last Admin: 08/27/17 08:35 Dose: 4 mg Pantoprazole Sodium (Protonix Inj) 40 mg IVP DAILY [facility] Last Admin: 08/26/17 14:12 Dose: 40 mg Perphenazine (Perphenazine) 16 mg PO HS [facility] Last Admin: 08/26/17 21:05 Dose: 16 mg Trihexyphenidyl HCl (Artane) 2 mg PO BID [facility] Last Admin: 08/26/17 17:36 Dose: 2 mg - Labs Labs: 08/25/17 22:55 08/25/17 22:55 PT 12.4 SECONDS (9.7-12.2) H 08/26/17 14:41 INR 1.1 08/26/17 14:41 APTT 29 SECONDS (21-34) 08/26/17 14:41
--- NOTE | 2017-08-27 10:09 | CP.PCM.CON ---
<Jovana Braun - Last Filed: 08/27/17 10:26> History of Present Illness - History of Present Illness History of Present Illness: Jovana Braun, PGY1, GI Consult Note for Dr Polo: CC: nausea, vomiting, abdominal pain, chest pain 67 years old female with hx DM, HLD, paranoid schizoprenia, presents for chest pain with nausea, vomiting, and abdominal pain. Pt is a poor historian, history primarily obtained form prior charts and daughter. As per daughter, pt started having nausea and bilious, but non-bloody vomiting episodes since yesterday. Pt has also been complaining of vague lower abdominal pain for past 3 days, not related to eating. Has had decreased appetite and dyspepsia, but denies fever, chills, sob, hematemesis, cough, diarrhea, constipation, hematochezia, melena, jaundice. Last BM yesterday. Pt had a previous EGD at [facility] on 07/11/2016, for dysphagia, found to have chronic active gastritis, positive for H Pylori. As per daughter, pt was treated with antibiotics. But unsure if pt has a GI doctor or was re-tested post treatment. No prior colonoscopy. Denies sick contacts or recent travel. In ED, pt hypertensive but otherwise stable, trop neg x 1, elevated LFTs: AST 55 , ALT 117, t.bili 2.1. Previously in 07/2016, t bili 1.5, AST 93, ALT 141. As per daughter, pt has had transaminitis in the past, due to multiple antipsychotic and oral antidiabetic meds like Clonazepam, Perphenazine, Acarbose. Pt currently complains of mild lower abdominal pain, but denies nausea, vomiting episodes. 12 point ROS reviewed and negative, except as per HPI PMH: DM, HLD, paranoid schizophrenia PSH: hysterectomy ALL: NKA FH: no family history of colon cancer, IBD SH: Lives with in house. Immobile patient, mostly in bed. Can walk. Denies alcohol, tobacco, marijuana use. Review of Systems - Review of Systems All systems: reviewed and no additional remarkable complaints except Review of Systems: as per HPI Past Patient History - Infectious Disease Hx of Infectious Diseases: None - Past Medical History & Family History Past Medical History?: Yes - Past Social History Smoking Status: Never Smoked - CARDIAC Hx Cardiac Disorders: Yes Hx Hypercholesterolemia: Yes - PULMONARY Hx Respiratory Disorders: No Other/Comment: NOTED SPASTIMATIC BODY MOVEMENTS- PT. ON PSY. MEDS - NEUROLOGICAL Hx Neurological Disorder: Yes Hx Dizziness: Yes - HEENT Hx HEENT Problems: No - RENAL Hx Chronic Kidney Disease: No - ENDOCRINE/METABOLIC Hx Endocrine Disorders: Yes Hx Diabetes Mellitus Type 2: Yes - HEMATOLOGICAL/ONCOLOGICAL Hx Blood Disorders: No - INTEGUMENTARY Hx Dermatological Problems: No - MUSCULOSKELETAL/RHEUMATOLOGICAL Hx Musculoskeletal Disorders: No Hx Falls: Yes - GASTROINTESTINAL Hx Gastrointestinal Disorders: Yes Other/Comment: DYSPHAGIA - GENITOURINARY/GYNECOLOGICAL Hx Genitourinary Disorders: No - PSYCHIATRIC Hx Psychophysiologic Disorder: Yes Hx Schizophrenia: Yes Hx Substance Use: No - SURGICAL HISTORY Hx Surgeries: Yes Hx Hysterectomy: Yes - ANESTHESIA Hx Anesthesia: Yes Hx Anesthesia Reactions: No Hx Malignant Hyperthermia: No Meds Allergies/Adverse Reactions: Allergies Allergy/AdvReac Type Severity Reaction Status Date / Time No Known Allergies Allergy Verified 08/25/17 21:40 - Medications Medications: Current Medications Aspirin (Ecotrin) 81 mg PO DAILY [facility] Last Admin: 08/26/17 11:45 Dose: 81 mg Clonazepam (Klonopin) 0.5 mg PO TID [facility] Last Admin: 08/26/17 17:35 Dose: 0.5 mg Glimepiride (Amaryl) 4 mg PO BIDAC [facility] Last Admin: 08/27/17 08:25 Dose: 4 mg Heparin Sodium (Porcine) (Heparin) 5,000 units SC Q12 [facility] Home Med (Patient's Own Medication) 1 tab PO TIDCC [facility] Last Admin: 08/27/17 09:00 Dose: 1 tab Metformin HCl (Glucophage) 500 mg PO DAILY@0800 [facility] Last Admin: 08/27/17 08:35 Dose: 500 mg Ondansetron HCl (Zofran Inj) 4 mg IVP Q6H [facility] Last Admin: 08/27/17 08:35 Dose: 4 mg Pantoprazole Sodium (Protonix Inj) 40 mg IVP DAILY [facility] Last Admin: 08/26/17 14:12 Dose: 40 mg Perphenazine (Perphenazine) 16 mg PO HS [facility] Last Admin: 08/26/17 21:05 Dose: 16 mg Trihexyphenidyl HCl (Artane) 2 mg PO BID [facility] Last Admin: 08/26/17 17:36 Dose: 2 mg Physical Exam - Constitutional Appears: Non-toxic - Head Exam Head Exam: ATRAUMATIC, NORMOCEPHALIC - Eye Exam Eye Exam: EOMI, PERRL Pupil Exam: PERRL - ENT Exam ENT Exam: Mucous Membranes Moist - Respiratory Exam Respiratory Exam: Clear to Auscultation Bilateral - Cardiovascular Exam Cardiovascular Exam: RRR, +S1, +S2 - GI/Abdominal Exam GI & Abdominal Exam: Normal Bowel Sounds, Soft, Tenderness. absent: Distended, Firm, Guarding, Mass, Rebound, Rigid Additional comments: Mildly TTP diffusely - Extremities Exam Extremities exam: Negative for: calf tenderness, pedal edema - Neurological Exam Neurological exam: Alert - Psychiatric Exam Psychiatric exam: Normal Mood - Skin Skin Exam: Dry, Normal Color, Warm Results - Vital Signs Recent Vital Signs: Last Vital Signs Temp 98 F 08/26/17 23:11 Pulse 89 08/26/17 23:11 Resp 20 08/26/17 23:11 BP 159/78 H 08/26/17 23:11 Pulse Ox 95 08/26/17 23:11 - Labs Result Diagrams: 08/25/17 22:55 08/25/17 22:55 Labs: Laboratory Results - last 24 hr 08/26/17 08/26/17 08/26/17 12:28 14:41 14:41 PT 12.4 H INR 1.1 APTT 29 POC Glucose (mg/dL) 189 H Direct Bilirubin Vitamin B12 Folate TSH 3rd Generation IgG Hepatitis A IgM Ab Hep Bs Antigen Hep Bs Antibody Negative Hep B Core IgM Ab Hepatitis C Antibody 08/26/17 08/26/17 08/26/17 16:03 17:45 17:45 PT INR APTT POC Glucose (mg/dL) 136 H Direct Bilirubin 1.0 H Vitamin B12 Folate TSH 3rd Generation IgG Hepatitis A IgM Ab Negative Negative Hep Bs Antigen Negative Negative Hep Bs Antibody Hep B Core IgM Ab Negative Negative Hepatitis C Antibody Negative 08/26/17 08/26/17 08/26/17 17:45 17:45 21:10 PT INR APTT POC Glucose (mg/dL) 134 H Direct Bilirubin Vitamin B12 573 Folate 16.6 TSH 3rd Generation 0.37 L IgG 783.4 Hepatitis A IgM Ab Hep Bs Antigen Hep Bs Antibody Hep B Core IgM Ab Hepatitis C Antibody 08/27/17 06:40 PT INR APTT POC Glucose (mg/dL) 130 H Direct Bilirubin Vitamin B12 Folate TSH 3rd Generation IgG Hepatitis A IgM Ab Hep Bs Antigen Hep Bs Antibody Hep B Core IgM Ab Hepatitis C Antibody Assessment & Plan - Assessment and Plan (Free Text) Assessment: 67 years old female with PMH DM, schizophrenia, presents for nausea, vomiting, abdominal pain and elevated LFTs: Plan: - 2/2 likely usage of hepatotoxic drugs (clonazepam, acarbose, glimerperide and metformin) vs infectious vs autoimmune etiology vs GERD vs gastritis vs gastroenteritis - Nausea and vomiting have resolved currently. Will evaluate elevated LFTs. - Abdominal Ultrasound. Follow up results. - CT abd pelvis chest 08/25/17: fat containing lesion in right kidney. Incidental 5 mm pulm nodule. - EGD 07/11/2016: chronic active gastritis, + h. pylori. No intestinal metaplasia. - As per daughter, pt was treated with triple therapy for H.pylori. But not sure if she was retested after treatment. - Protonix daily, Zofran prn - Pt passed bedside swallow eval. Awaiting formal swalllow eval. - Hgb A1C, Hepatitis and autoimmune workup f/u - Consider different antipsychotic agents in light of transaminitis. Discussed with GI fellow and attending, Dr Polo. Jovana Braun, PGY1 - Date & Time Date: 08/27/17 Time: 10:16 <Helio Polo - Last Filed: 08/27/17 12:49> Meds - Medications Medications: Current Medications Aspirin (Ecotrin) 81 mg PO DAILY [facility] Last Admin: 08/27/17 10:08 Dose: 81 mg Clonazepam (Klonopin) 0.5 mg PO TID [facility] Last Admin: 08/27/17 10:08 Dose: 0.5 mg Glimepiride (Amaryl) 4 mg PO BIDAC [facility] Last Admin: 08/27/17 08:25 Dose: 4 mg Heparin Sodium (Porcine) (Heparin) 5,000 units SC Q12 [facility] Last Admin: 08/27/17 11:23 Dose: 5,000 units Home Med (Patient's Own Medication) 1 tab PO TIDCC [facility] Last Admin: 08/27/17 09:00 Dose: 1 tab Metformin HCl (Glucophage) 500 mg PO DAILY@0800 [facility] Last Admin: 11/21/17 08:35 Dose: 500 mg Ondansetron HCl (Zofran Inj) 4 mg IVP Q6H PRN PRN Reason: Nausea/Vomiting Pantoprazole Sodium (Protonix Inj) 40 mg IVP DAILY [facility] Last Admin: 08/27/17 10:08 Dose: 40 mg Perphenazine (Perphenazine) 16 mg PO HS [facility] Last Admin: 08/26/17 21:05 Dose: 16 mg Trihexyphenidyl HCl (Artane) 2 mg PO BID [facility] Last Admin: 08/27/17 10:10 Dose: 2 mg Results - Vital Signs Recent Vital Signs: Last Vital Signs Temp 87.7 F L 08/27/17 08:15 Pulse 88 08/27/17 08:15 Resp 20 08/27/17 08:15 BP 138/70 08/27/17 08:15 Pulse Ox 95 08/27/17 08:15 - Labs Result Diagrams: 08/25/17 22:55 08/27/17 11:53 Labs: Laboratory Results - last 24 hr 08/26/17 08/26/17 08/26/17 14:41 14:41 16:03 PT 12.4 H INR 1.1 APTT 29 Sodium Potassium Chloride Carbon Dioxide Anion Gap BUN Creatinine Est GFR ( Amer) Est GFR (Non-Af Amer) POC Glucose (mg/dL) 136 H Random Glucose Calcium Total Bilirubin Direct Bilirubin AST ALT Alkaline Phosphatase Troponin I Total Protein Albumin Globulin Albumin/Globulin Ratio Vitamin B12 Folate TSH 3rd Generation IgG Hepatitis A IgM Ab Hep Bs Antigen Hep Bs Antibody Negative Hep B Core IgM Ab Hepatitis C Antibody 08/26/17 08/26/17 08/26/17 17:45 17:45 17:45 PT INR APTT Sodium Potassium Chloride Carbon Dioxide Anion Gap BUN Creatinine Est GFR ( Amer) Est GFR (Non-Af Amer) POC Glucose (mg/dL) Random Glucose Calcium Total Bilirubin Direct Bilirubin 1.0 H AST ALT Alkaline Phosphatase Troponin I Total Protein Albumin Globulin Albumin/Globulin Ratio Vitamin B12 Folate TSH 3rd Generation IgG 783.4 Hepatitis A IgM Ab Negative Negative Hep Bs Antigen Negative Negative Hep Bs Antibody Hep B Core IgM Ab Negative Negative Hepatitis C Antibody Negative 08/26/17 08/26/17 08/27/17 17:45 21:10 06:40 PT INR APTT Sodium Potassium Chloride Carbon Dioxide Anion Gap BUN Creatinine Est GFR ( Amer) Est GFR (Non-Af Amer) POC Glucose (mg/dL) 134 H 130 H Random Glucose Calcium Total Bilirubin Direct Bilirubin AST ALT Alkaline Phosphatase Troponin I Total Protein Albumin Globulin Albumin/Globulin Ratio Vitamin B12 573 Folate 16.6 TSH 3rd Generation 0.37 L IgG Hepatitis A IgM Ab Hep Bs Antigen Hep Bs Antibody Hep B Core IgM Ab Hepatitis C Antibody 08/27/17 08/27/17 11:22 11:53 PT INR APTT Sodium 137 Potassium 3.1 L Chloride 100 Carbon Dioxide 26 Anion Gap 15 BUN 12 Creatinine 0.6 L Est GFR ( Amer) > 60 Est GFR (Non-Af Amer) > 60 POC Glucose (mg/dL) 211 H Random Glucose 218 H Calcium 8.8 Total Bilirubin 2.6 H Direct Bilirubin AST 56 H ALT 118 H Alkaline Phosphatase 58 Troponin I < 0.0120 Total Protein 7.8 Albumin 4.3 Globulin 3.5 Albumin/Globulin Ratio 1.2 Vitamin B12 Folate TSH 3rd Generation IgG Hepatitis A IgM Ab Hep Bs Antigen Hep Bs Antibody Hep B Core IgM Ab Hepatitis C Antibody Attending/Attestation - Attestation I have personally seen and examined this patient.: Yes I have fully participated in the care of the patient.: Yes I have reviewed all pertinent clinical information: Yes Notes (Text): 08/27/17 12:40 I have seen and examined patient with GI fellow and manager medical. Agree with above documentation with the following additions. In brief, this is a 67 year old female with history of DM, hyperlipidemia, schizophrenia who presents to hospital with complaint of chest discomfort, nausea, and abdominal pain. She is not able to reliably participate in meaningful conversation due to underlying mental illness, additional information obtained via discussion with PMD, nursing staff, and patient's daughter. She describes bilateral lower quadrant abdominal discomfort which does not seem to be related to food consumption. Yesterday she apparently developed three episodes of non-bloody emesis and came to hospital. She denies fever/chills, weight loss, rectal bleeding, or change in bowel habits. She did undergo EGD in July 2016 which showed helicobacter pylori associated gastritis, s/p therapy. She has not had recurrent vomiting since arrival to hospital. 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 Discussed with Dr. Champion. - LFTs stable, continue to monitor and avoid hepatotoxic therapies - Obtain autoimmune serologies - Obtain stool Hpylori antigen to confirm eradication - Abdominal US reviewed by me showing no gross biliary abnormalities - Continue with PPI therapy, supportive care - Will continue to monitor patient clinical course
--- NOTE | 2017-08-27 10:16 | US ---
Abdominal ultrasound History: Abdominal pain. Elevated liver enzymes. Comparison: CT scan dated 08/26/2017. Technique: Real-time sonography was performed through the abdomen. Findings: Liver: 15.7 centimeters in length. Increased echogenicity of the hepatic parenchymal cortex suggestive for fatty infiltration versus hepatic parenchymal disease. Clinical correlation. Gallbladder: No calculi or sludge. Normal wall thickness of 1.7 millimeters. Negative sonographic Urban's sign. Common bile duct measures 3.8 millimeters, within normal limits. Pancreas not well visualized. Spleen measures 11.6 centimeters in length, within normal limits. Visualized aorta and IVC are preserved. Right kidney: 13.9 x 5.1 x 5.9 centimeters. No calculi or hydronephrosis. Heterogeneous echogenic lesion seen within the right kidney measuring 2.7 x 2.4 x 1.9 centimeters corresponding to the fat containing lesion seen within CT scan suggestive for a possible angiomyolipoma. This may be better evaluated with a multiphasic CT or MR for better characterization. Left Kidney: 11.3 x 6.0 x 5.7 centimeters. No calculi or hydronephrosis. Impression: 1. Increased echogenicity of the hepatic parenchymal cortex suggestive for fatty infiltration versus hepatic parenchymal disease. Clinical correlation. 2. Limited visualization of the pancreas. 3. 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 Correlation with multiphasic CT or MR may be helpful for further characterization if clinically indicated.
[2017-08-27 12:26] LABS: ALB/GLOB RATIO 1.2 (1.0-2.1); ALKALINE PHOSPHATASE 58 U/L (38-126); ALT/SGPT 118 U/L (9-52); AST/SGOT 56 U/L (14-36); BILIRUBIN,TOTAL 2.6 mg/dL (0.2-1.3); BLOOD UREA NITROGEN 12 mg/dL (7-17); CALCIUM 8.8 mg/dl (8.6-10.4); CARBON DIOXIDE 26 mmol/L (22-30); CHLORIDE 100 mmol/L (98-107); GFR AFRICAN-AMERICAN > 60; GLUCOSE,RANDOM 218 mg/dL (65-105); POTASSIUM 3.1 mmol/L (3.6-5.2); SODIUM 137 mmol/L (132-148); TOTAL PROTEIN 7.8 g/dL (6.3-8.3)
[2017-08-27 14:13] LABS: HB E AG Nonreactive (Nonreactive)
[2017-08-27] MEDS ORDERED: Potassium Chloride 20 mEq/15 ml LIQ UD PO ONE (18:00)
--- NOTE | 2017-08-27 20:07 | PN ---
DATE: 08/27/2017 SUBJECTIVE: The patient was transferred to the 4-bedded observation room for closer monitoring. The patient is still screaming at times, chronically psychotic, but redirectable. Her blood sugar seems to be very controlled, it is 130 at this time. She has been compliant with her meds. Her TSH was noted to be low 0.37, B12 is 573 and folate 16.6. All hepatitis tests are negative. PHYSICAL EXAMINATION: VITAL SIGNS: Temperature is 98, pulse is 89, blood pressure 159/78, respirations 20, oxygen sat is 95%. REVIEW OF SYSTEMS: GENERAL: The patient is alert, verbal, still with fears to have psychosis, but cooperative. SKIN: No diaphoresis. HEENT: No headache. No dizziness. NECK: Supple. RESPIRATORY: No dyspnea. CARDIOVASCULAR: No chest pain or palpitation. GASTROINTESTINAL: She is eating well. EXTREMITIES: The patient has unsteady gait. MUSCULOSKELETAL: Feels weak. NEUROLOGIC: Alert and oriented x3. GENITOURINARY: No dysuria. MENTAL STATUS EXAMINATION: Elderly female who looks stated age, oriented x3, seen in her room. Mood is irritable at times. Affect is reactive. Speech is daze. Thought process coherent. Thought content has chronic delusions and also the patient has intermittent hallucinations, she talks herself, but no suicidal ideation. Attention and memory seems to be limited. Insight and judgment limited. Impulse control is fair at this time. IMPRESSION: Schizoaffective disorder, bipolar type; and chest pain. PLAN AND RECOMMENDATION: The patient is seen and meds reviewed. Continue present psych meds. Continue present management. The patient was seen by Dr. Silva, Cardiology and his last note showed the patient had normal LV function and no evidence of myocardial ischemia. We will continue the present psych meds, these have been her maintenance medication for years. Once the patient is medically stable, the patient can go to [facility] for subacute rehab, but did advise that she has to be in a different floor. The is currently in the 5th floor. The patient can go to the 4th floor to give her a break as the patient's admitted for rehab there due to cardiac issues. Israel Tristan MD [facility] # [id number] MTDD
[2017-08-28 07:47] LABS: BASO # 0.1 K/uL (0.0-0.2); BASO % 0.7 % (0.0-2.0); EOS # 0.2 K/uL (0.0-0.7); EOS % 1.6 % (0.0-4.0); HEMATOCRIT 46.1 % (34.0-47.0); LYMPH # 2.8 K/uL (1.0-4.3); LYMPH % 25.7 % (20.0-40.0); MEAN CELL VOLUME 84.2 fL (81.0-99.0); MEAN CORPUSCULAR HEMOGLOBIN 28.1 pg (27.0-31.0); MEAN CORPUSCULAR HGB CONC 33.4 g/dL (33.0-37.0); MEAN PLATELET VOLUME 9.1 fL (7.2-11.7); MONO # 0.8 K/uL (0.0-0.8); RED CELL DISTRIBUTION WIDTH 13.2 % (11.5-14.5); WHITE BLOOD COUNT 10.9 K/uL (4.8-10.8)
[2017-08-28] MEDS: ACARBOSE 50 MG PO SCH ×3 (08:10→17:25)
[2017-08-28 08:23] LABS: ALB/GLOB RATIO 1.6 (1.0-2.1); ALKALINE PHOSPHATASE 63 U/L (38-126); ALT/SGPT 112 U/L (9-52); AST/SGOT 53 U/L (14-36); BILIRUBIN,DIRECT 0.8 mg/dL (0.0-0.4); BLOOD UREA NITROGEN 15 mg/dL (7-17); CALCIUM 8.6 mg/dl (8.6-10.4); CARBON DIOXIDE 27 mmol/L (22-30); CHLORIDE 100 mmol/L (98-107); GFR AFRICAN-AMERICAN > 60; GLUCOSE,RANDOM 142 mg/dL (65-105); POTASSIUM 3.4 mmol/L (3.6-5.2); SODIUM 137 mmol/L (132-148); TOTAL PROTEIN 6.8 g/dL (6.3-8.3)
--- NOTE | 2017-08-28 08:41 | PN ---
DATE: 08/27/2017 SUBJECTIVE: She is not in any cardiopulmonary distress. PHYSICAL EXAMINATION: VITAL SIGNS: Blood pressure 159/78, temperature 98, respiratory rate 20, and pulse 89. HEENT: Pupils equal, reactive to light. Normal-appearing mucosa of the conjunctivae, oropharynx, and nasal membrane mucosa. NECK: Supple. No JVD. No carotid bruit. No lymph node. No thyromegaly. CHEST AND LUNGS: Bilateral symmetrical expansion. Good air exchange. No rales. No rhonchi. CARDIOVASCULAR SYSTEM: PMI not localized. S1 and S2. No additional sounds. ABDOMEN: Normoactive bowel sounds. No tenderness. No organomegaly. No masses. EXTREMITIES: No cyanosis. No clubbing. No edema. CENTRAL NERVOUS SYSTEM: Alert, awake, and oriented x2. No neurological deficit could be appreciated. ASSESSMENT: 1. Epigastric pain radiates to the chest, myocardial infarction was ruled out. 2. Possible gastritis. 3. Type 2 diabetes mellitus. PLAN: We will monitor electrolytes and follow recommendations of educational aide and supervisor veneer. Simran Champion MD
--- NOTE | 2017-08-28 08:42 | HP ---
HISTORY OF PRESENT ILLNESS: This is a 67-year-old female with history of multiple medical problems including type 2 diabetes mellitus and schizophrenia, presented to emergency room with symptoms of epigastric pain radiates to the chest as well as frequent vomiting. The patient was evaluated in the emergency room and she had a CT scan of the chest, abdomen, and pelvis that was unremarkable. The patient was started on IV fluid and was admitted for further management. OTHER REVIEW OF SYSTEM: Negative, the patient is a poor historian and history of unreliable. ALLERGIES: NO KNOWN ALLERGY. HOME MEDICATIONS: Metformin 500 mg twice a day, glimepiride 4 mg twice a day, aspirin 81 mg daily, clonazepam 0.5 mg three times a day, Precose 50 mg three times a day. SOCIAL HISTORY: No history of smoking, EtOH, or substance abuse. FAMILY HISTORY: Not contributory. PAST MEDICAL HISTORY: Type 2 diabetes mellitus, schizophrenia. PHYSICAL EXAMINATION: GENERAL: The patient is in bed, comfortable, not in any cardiopulmonary distress. VITAL SIGNS: Blood pressure 154/74, temperature 97.9, respiratory rate 20, and pulse 91. HEENT: Pupils equal, reactive to light. Normal-appearing mucosa of the conjunctivae, oropharynx, and nasal membrane mucosa. NECK: Supple. No JVD. No carotid bruit. No lymph node. No thyromegaly. CHEST AND LUNGS: Bilateral symmetrical expansion. Good air exchange. No rales. No rhonchi. CARDIOVASCULAR SYSTEM: PMI not localized. S1, S2. No additional sounds. ABDOMEN: Normoactive bowel sounds. No tenderness. No organomegaly. No masses. EXTREMITIES: No cyanosis. No clubbing. No edema. CENTRAL NERVOUS SYSTEM: Alert, awake, oriented x2. No neurological deficits could be appreciated. ASSESSMENT: 1. Epigastric pain radiates to the chest with frequent vomiting, rule out acute coronary syndrome. 2. Type 2 diabetes mellitus. 3. Schizophrenia. PLAN: We will do cardiac enzymes every 8 hours x3. Cardiology consult and follow recommendations. GI consult and Psychiatric consult. Do Accu-Cheks q.i.d. with insulin coverage. Resume the patient's home medications. Simran Champion MD [facility] # [id number]
--- NOTE | 2017-08-28 09:17 | CP.PCM.PN ---
<Jovana Braun - Last Filed: 08/28/17 17:09> Subjective - Date & Time of Evaluation Date of Evaluation: 08/28/17 Time of Evaluation: 09:14 - Subjective Subjective: Jovana Braun, PGY1, GI [place] Note for Dr Polo: Pt seen and examined at bedside. No acute events overnight. Pt has minimal abdominal pain, denies nausea, vomiting, dyspepsia, diarrhea. Last small BM yesterday, as per nurse. 12 point ROS unobtainable due to limited mental capacity. History obtained from nursing staff and charts. Objective - Vital Signs/Intake and Output Vital Signs (last 24 hours): Temp Pulse Resp BP Pulse Ox 97.4 F L 96 H 20 127/80 94 L 08/28/17 08:00 08/28/17 08:00 08/28/17 08:00 08/28/17 08:00 08/28/17 08:00 Intake and Output: 08/28/17 08/28/17 06:59 18:59 Intake Total 500 Balance 500 - Medications Medications: Current Medications Aspirin (Ecotrin) 81 mg PO DAILY [facility] Last Admin: 08/27/17 10:08 Dose: 81 mg Clonazepam (Klonopin) 0.5 mg PO TID [facility] Last Admin: 08/27/17 17:30 Dose: 0.5 mg Glimepiride (Amaryl) 4 mg PO BIDAC [facility] Last Admin: 08/28/17 08:10 Dose: 4 mg Heparin Sodium (Porcine) (Heparin) 5,000 units SC Q12 [facility] Last Admin: 08/27/17 21:29 Dose: 5,000 units Home Med (Patient's Own Medication) 1 tab PO TIDCC [facility] Last Admin: 08/28/17 08:10 Dose: 1 tab Potassium Chloride (Potassium Chloride 10 Meq/100 Ml) 10 meq in 100 mls @ 100 mls/hr IVPB Q2 [facility] Stop: 08/28/17 12:59 Metformin HCl (Glucophage) 500 mg PO DAILY@0800 [facility] Last Admin: 08/28/17 08:09 Dose: 500 mg Ondansetron HCl (Zofran Inj) 4 mg IVP Q6H PRN PRN Reason: Nausea/Vomiting Pantoprazole Sodium (Protonix Inj) 40 mg IVP DAILY [facility] Last Admin: 08/27/17 10:08 Dose: 40 mg Perphenazine (Perphenazine) 16 mg PO HS [facility] Last Admin: 08/27/17 21:30 Dose: 16 mg Trihexyphenidyl HCl (Artane) 2 mg PO BID [facility] Last Admin: 08/27/17 17:25 Dose: 2 mg - Labs Labs: 08/28/17 07:17 08/28/17 07:17 PT 12.4 SECONDS (9.7-12.2) H 08/26/17 14:41 INR 1.1 08/26/17 14:41 APTT 29 SECONDS (21-34) 08/26/17 14:41 - Constitutional Appears: Non-toxic, No Acute Distress, Older Than Stated Age - Head Exam Head Exam: ATRAUMATIC, NORMOCEPHALIC - Eye Exam Eye Exam: Normal appearance Pupil Exam: PERRL - ENT Exam ENT Exam: Mucous Membranes Moist - Neck Exam Neck Exam: Full ROM - Respiratory Exam Respiratory Exam: Clear to Ausculation Bilateral. absent: Accessory Muscle Use , Respiratory Distress - Cardiovascular Exam Cardiovascular Exam: RRR, +S1, +S2. absent: Murmur - GI/Abdominal Exam GI & Abdominal Exam: Soft, Normal Bowel Sounds. absent: Distended, Firm, Guarding, Rigid, Tenderness, Mass, Organomegaly, Rebound - Extremities Exam Extremities Exam: absent: Calf Tenderness, Pedal Edema - Back Exam Back Exam: NORMAL INSPECTION - Neurological Exam Neurological Exam: Alert, Altered (limited mental capacity due to long standing schizophrenia), Awake - Psychiatric Exam Psychiatric exam: Normal Affect, Normal Mood - Skin Skin Exam: Dry, Normal Color, Warm Assessment and Plan - Assessment and Plan (Free Text) Assessment: 67 years old female with PMH DM, schizophrenia, presents for chest pain, nausea , vomiting, abdominal pain and transaminits: Plan: - Transaminitis 2/2 likely usage of hepatotoxic drugs (clonazepam, acarbose, glimeperide and metformin) vs infectious vs autoimmune etiology vs GERD vs gastritis vs gastroenteritis - No nausea and vomiting for 48 hours now. Tolerating full liquid diet well. Formal swallow eval shows mechanical soft bite size and thin liquids. Advance diet today. - Abdominal Ultrasound 08/27/17: shows increased echogenicity of the hepatic parenchymal cortex - fatty infiltration vs hepatic parenchymal disease. 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 Correlation with multiphasic CT or MR may be helpful for further characterization if clinically indicated. - CT abd pelvis chest 08/25/17: Stool in right ascending colon. fat containing lesion in right kidney. Incidental 5 mm pulm nodule. - EGD 07/11/2016: chronic active gastritis, + h. pylori. No intestinal metaplasia. - As per daughter, pt was treated with triple therapy for H.pylori. But not sure if she was retested for eradication after treatment. F/u fecal antigen test. - Protonix daily, Zofran prn - Barium swallow eval 11/2015 shows abnormal esophageal contractions. No mass, lesions. Discussed with Dr Champion for likely benefit from outpatient elective motility study. - Hgb A1C 6.6, Hepatitis and autoimmune workup negative - Avoid hepatotoxic agents in light of transaminitis. - Pt had a small BM yesterday. Will start on bowel regimen: Miralax daily. Dulcolax today. - Thank you for allowing us to participate in this patient's care. If any concerns or problems, please reconsult us. Discussed with GI fellow and attending, Dr Polo. Jovana Braun, PGY1 <Helio Polo - Last Filed: 08/28/17 17:28> Objective - Vital Signs/Intake and Output Vital Signs (last 24 hours): Temp Pulse Resp BP Pulse Ox 98.7 F 92 H 20 121/71 96 08/28/17 16:31 08/28/17 16:31 08/28/17 16:31 08/28/17 16:31 08/28/17 16:31 Intake and Output: 08/28/17 08/28/17 06:59 18:59 Intake Total 500 780 Balance 500 780 - Medications Medications: Current Medications Aspirin (Ecotrin) 81 mg PO DAILY [facility] Last Admin: 08/28/17 09:40 Dose: 81 mg Clonazepam (Klonopin) 0.5 mg PO TID [facility] Last Admin: 08/28/17 14:29 Dose: 0.5 mg Glimepiride (Amaryl) 4 mg PO BIDAC [facility] Last Admin: 08/28/17 08:10 Dose: 4 mg Heparin Sodium (Porcine) (Heparin) 5,000 units SC Q12 [facility] Last Admin: 08/28/17 10:58 Dose: 5,000 units Home Med (Patient's Own Medication) 1 tab PO TIDCC [facility] Last Admin: 08/28/17 12:57 Dose: 1 tab Metformin HCl (Glucophage) 500 mg PO DAILY@0800 [facility] Last Admin: 08/28/17 08:09 Dose: 500 mg Ondansetron HCl (Zofran Inj) 4 mg IVP Q6H PRN PRN Reason: Nausea/Vomiting Pantoprazole Sodium (Protonix Inj) 40 mg IVP DAILY [facility] Last Admin: 08/28/17 09:57 Dose: 40 mg Perphenazine (Perphenazine) 16 mg PO HS [facility] Last Admin: 08/27/17 21:30 Dose: 16 mg Polyethylene Glycol (Miralax) 17 gm PO DAILY [facility] Trihexyphenidyl HCl (Artane) 2 mg PO BID [facility] Last Admin: 08/28/17 09:56 Dose: 2 mg - Labs Labs: 08/28/17 07:17 08/28/17 07:17 PT 12.4 SECONDS (9.7-12.2) H 08/26/17 14:41 INR 1.1 08/26/17 14:41 APTT 29 SECONDS (21-34) 08/26/17 14:41 Attending/Attestation - Attestation I have personally seen and examined this patient.: Yes I have fully participated in the care of the patient.: Yes I have reviewed all pertinent clinical information, including history, physical exam and plan: Yes Notes (Text): 08/28/17 17:24 I have seen and examined patient with GI fellow and medical doctor nuclear medicine. No acute events overnight, she is seen resting in bed comfortably. She has not had any recurrent episodes of vomiting and is tolerating PO diet without difficulty. She had one small bowel movement yesterday. DM Schizophrenia Nausea, vomiting - resolved Constipation Transaminitis - Advance diet as tolerated - Continue with PPI therapy - Maintain bowel regimen in order to prevent recurrent constipation (CT imaging reviewed showing R sided fecal retention) - LFTs stable, continue to monitor. Viral hepatitis and autoimmune panels negative. - No further planned GI intervention, will sign off case. If dysphagia symptoms persist, patient would benefit from outpatient manometry study following resolution of acute symptoms. Case discussed with Dr. Champion.
[2017-08-28] MEDS ORDERED: Bisacodyl 5mg EC Tab PO ONE (16:55)
[2017-08-28] MEDS: POLYETHYLENE GLYCOL 3350 17 GM/Dose PACKET PO SCH (17:25)
--- NOTE | 2017-08-28 18:04 | PN ---
DATE: 08/28/2017 SUBJECTIVE: The patient seen in a 4-bedded observation room, seen with her daughter. The patient is close to her baseline. No behavioral problems noted. The patient is awaiting medial clearance to go to [facility] for subacute rehab but the patient will be going to a different floor not together with who is there also for rehab for cardiac reason. She has being complaint with her meds. No change from her baseline. PHYSICAL EXAMINATION: VITAL SIGNS: Temperature is 97.4, pulse rate 96, blood pressure 127/80, respirations 20, oxygen sat is 94% on room air. REVIEW OF SYSTEMS: GENERAL: The patient is alert, oriented x3, seen in her room screaming at times, was redirectable. SKIN: No diaphoresis. HEENT: No headache. No dizziness. NECK: Supple. RESPIRATORY: No dyspnea. No palpitation. CARDIOVASCULAR: No chest pain. GASTROINTESTINAL: She is eating well. EXTREMITIES: The patient gait is steady at times. MUSCULOSKELETAL: Feels weak. NEUROLOGIC: Alert and oriented x3. GENITOURINARY: No dysuria. MENTAL STATUS EXAMINATION: Elderly female, who looks stated age, and oriented x3. Mood is anxious at times. Affect is reactive. Speech is spontaneous. Thought process, coherent. Thought content, no suicidal or homicidal ideation. Chronically delusional. Attention and memory seems to be fair. Insight and judgment fair. Impulse control is fair. LABORATORY DATA: Review of her labs, her blood sugar is well controlled below 150, current was 141. The patient A1c is 6.6. IMPRESSION: Schizoaffective disorder bipolar type, history of chest pain, diabetes. PLAN AND RECOMMENDATION: The patient is seen and meds reviewed. The patient is awaiting medical clearance. Continue present psych meds. Once the patient is medically stable, she can go to [facility] for subacute rehab. Her is there also for subacute rehab. The patient wants to go there. At this time, is complaint with her meds and currently at her baseline. Israel Tristan MD
[2017-08-29] MEDS: ACARBOSE 50 MG PO SCH ×3 (08:50→17:25)
--- NOTE | 2017-08-29 10:46 | CARD ---
APPROVED REPORT EKG Measurement Heart [id number] ND [id number] [id number] <Conclusion> Normal sinus rhythm Left bundle branch block Abnormal ECG
[2017-08-29] MEDS: POLYETHYLENE GLYCOL 3350 17 GM/Dose PACKET PO SCH (11:44)
[2017-08-29 16:29] VITALS: O2SAT 95
--- NOTE | 2017-08-30 08:50 | PN ---
DATE: 08/28/2017 SUBJECTIVE: She was in mild distress and complaining of abdominal pain. Examination showed the patient has tenderness on the suprapubic area. PHYSICAL EXAMINATION: VITAL SIGNS: Blood pressure was 121/71, temperature 98.7, respiratory rate 20, and pulse 92. HEENT: Pupils equal, reactive to light. Normal-appearing mucosa of the conjunctivae, oropharynx, and nasal membrane mucosa. NECK: Supple. No JVD. No carotid bruit. No lymph node. No thyromegaly. CHEST AND LUNGS: Bilateral symmetrical expansion. Good air exchange. No rales. No rhonchi. CARDIOVASCULAR SYSTEM: PMI not localized. S1 and S2. No additional sounds. ABDOMEN: Normoactive bowel sounds. No organomegaly. No masses. The patient has suprapubic tenderness. EXTREMITIES: No cyanosis. No clubbing. No edema. CENTRAL NERVOUS SYSTEM: Alert, awake, oriented x2. No neurological deficit could be appreciated. ASSESSMENT: 1. Possible urinary retention. 2. Status post frequent vomiting and gastritis. 3. Hypertension. 4. Type 2 diabetes mellitus. 5. Schizophrenia. PLAN: We will do a bladder scan and if there is more than 200 mL of urine, we will leave a Moser catheter. Physical therapy and follow recommendations of Psychiatry and further physical therapy recommendations. Simran Champion MD
--- NOTE | 2017-08-30 08:51 | PN ---
DATE: 08/29/2017 SUBJECTIVE: The patient is seen today, 08/29/2017. She is not in any cardiopulmonary distress and she feels better as Moser catheter was placed. Bladder scan showed that the patient has 631 mL of urinary retention. PHYSICAL EXAMINATION: VITAL SIGNS: Blood pressure today is 146/85, temperature 97.6, respiratory rate 18, and pulse 77. HEENT: Pupils equal, reactive to light. Normal-appearing mucosa of the conjunctivae, oropharynx, and nasal membrane mucosa. NECK: Supple. No JVD. No carotid bruit. No lymph node. No thyromegaly. CHEST AND LUNGS: Bilateral symmetrical expansion. Good air exchange. No rales. No rhonchi. CARDIOVASCULAR SYSTEM: PMI not localized. S1, S2. No additional sounds. ABDOMEN: Normoactive bowel sounds. No tenderness. No organomegaly. No masses. EXTREMITIES: No cyanosis. No clubbing. No edema. CENTRAL NERVOUS SYSTEM: Alert, awake, oriented x2. No neurological deficit could be appreciated. ASSESSMENT: 1. Urinary retention. 2. Type 2 diabetes mellitus. 3. Schizophrenia. 4. Status post gastritis with frequent vomiting. PLAN: We will add bethanechol and give the patient a trial of urination after removal of the catheter. Continue current physical therapy and discharge planning to subacute rehabilitation. Simran Champion MD
[2017-08-30] MEDS: POLYETHYLENE GLYCOL 3350 17 GM/Dose PACKET PO SCH (09:27)
[2017-08-30] MEDS: ACARBOSE 50 MG PO SCH ×3 (09:27→16:21)
[2017-08-30 11:28] LABS: BASO % 0.6 % (0.0-2.0); EOS # 0.3 K/uL (0.0-0.7); EOS % 3.2 % (0.0-4.0); HEMATOCRIT 41.8 % (34.0-47.0); LYMPH # 3.1 K/uL (1.0-4.3); LYMPH % 36.1 % (20.0-40.0); MEAN CELL VOLUME 83.9 fL (81.0-99.0); MEAN CORPUSCULAR HEMOGLOBIN 28.4 pg (27.0-31.0); MEAN CORPUSCULAR HGB CONC 33.9 g/dL (33.0-37.0); MEAN PLATELET VOLUME 9.1 fL (7.2-11.7); MONO # 0.5 K/uL (0.0-0.8); MONO % 6.2 % (0.0-10.0); NRBC % 0.3 % (0.0-2.0); RED CELL DISTRIBUTION WIDTH 12.9 % (11.5-14.5); WHITE BLOOD COUNT 8.7 K/uL (4.8-10.8)
[2017-08-30 12:03] LABS: BLOOD UREA NITROGEN 13 mg/dL (7-17); CALCIUM 8.5 mg/dl (8.6-10.4); CARBON DIOXIDE 27 mmol/L (22-30); CHLORIDE 100 mmol/L (98-107); GFR AFRICAN-AMERICAN > 60; GLUCOSE,RANDOM 178 mg/dL (65-105); POTASSIUM 3.9 mmol/L (3.6-5.2); SODIUM 135 mmol/L (132-148)
[2017-08-30 13:46] LABS: LKM-1 Ab (IgG) <=20.0 U (<=20.0)
--- NOTE | 2017-08-30 14:37 | CP.PCM.PN ---
Subjective - Date & Time of Evaluation Date of Evaluation: 08/30/17 Time of Evaluation: 11:15 - Subjective Subjective: Patien t seen today, awake , alert, NAD, denies any chest pain, son , abdominal pain, N/V, c/o constipation No overnihgt events reported by RN f/c in place - pink tinged urine noted Objective - Vital Signs/Intake and Output Vital Signs (last 24 hours): Temp Pulse Resp BP Pulse Ox 97.5 F L 69 18 145/84 95 08/30/17 07:28 08/30/17 07:28 08/30/17 07:28 08/30/17 07:28 08/30/17 07:28 Intake and Output: 08/30/17 08/30/17 06:59 18:59 Output Total 200 Balance -200 - Medications Medications: Current Medications Aspirin (Ecotrin) 81 mg PO DAILY [facility] Last Admin: 08/30/17 09:36 Dose: 81 mg Bethanechol Chloride (Urecholine) 25 mg PO BID [facility] Last Admin: 08/30/17 09:27 Dose: 25 mg Clonazepam (Klonopin) 0.5 mg PO TID [facility] Last Admin: 08/30/17 13:17 Dose: 0.5 mg Glimepiride (Amaryl) 4 mg PO BIDAC [facility] Last Admin: 08/30/17 08:49 Dose: 4 mg Heparin Sodium (Porcine) (Heparin) 5,000 units SC Q12 [facility] Last Admin: 08/30/17 09:27 Dose: 5,000 units Home Med (Patient's Own Medication) 1 tab PO TIDCC [facility] Last Admin: 08/30/17 13:17 Dose: 1 tab Lactulose (Enulose) 20 gm PO [facility] Metformin HCl (Glucophage) 500 mg PO DAILY@0800 [facility] Last Admin: 08/30/17 08:49 Dose: 500 mg Ondansetron HCl (Zofran Inj) 4 mg IVP Q6H PRN PRN Reason: Nausea/Vomiting Pantoprazole Sodium (Protonix Inj) 40 mg IVP DAILY [facility] Last Admin: 08/30/17 09:27 Dose: 40 mg Perphenazine (Perphenazine) 16 mg PO [facility] Last Admin: 08/29/17 22:11 Dose: 16 mg Polyethylene Glycol (Miralax) 17 gm PO DAILY [facility] Last Admin: 08/30/17 09:27 Dose: 17 gm Trihexyphenidyl HCl (Artane) 2 mg PO BID [facility] Last Admin: 08/30/17 09:27 Dose: 2 mg - Labs Labs: 08/30/17 11:14 08/30/17 11:14 PT 12.4 SECONDS (9.7-12.2) H 08/26/17 14:41 INR 1.1 08/26/17 14:41 APTT 29 SECONDS (21-34) 08/26/17 14:41 Assessment and Plan - Assessment and Plan (Free Text) Assessment: A/P 67 y/o female admitted with abdominal pain for 2 days and chest pain troponin x 2 - negative s/p stress test -No evidence of myocardial ischemia Normal LV function. todays labs- unremarkable patient accepted at [facility] for rehab seen by Dr. Willis today cleared for discharge to [facility] seen by LANA
[2017-08-30 15:16] VITALS: BP 128/89; PULSE 84; RESP 20; TEMP 97.3
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
[2017-08-30] MEDS ORDERED: Pneumococcal 23-Valent Vaccine IM ONE (15:34)
[2017-08-30] MEDS ORDERED: Influenza Vaccine 60 mcg/0.5 mL SYR (4YR UP) IM ONE (15:34)
--- NOTE | 2017-09-01 18:23 | CARD ---
APPROVED REPORT Protocol: LEXISCAN Test Type: LEXISCAN STRESS Test Indications: ANGINA Target HR: 154 bpm Resting ECG: NSR W/ LBBB Resting Heart Rate: 83 bpm Resting Blood Pressure: 160/80mmHg submaximum (85%): 131 bpm TEST SUMMARY [id number].02:[id number]/80.8. INFUSIONDOSE 100:300.00.01.078/.0. [id number]/80.6. PROCEDURE Pharmacologic stress testing was performed using 0.4mg per 5ml of regadenoson given intravenously over 7-10 seconds. Reversal agent aminophyline 125 mg, given intravenously for Headache. POST EXERCISE Reason for Termination: COMPLE Protocol Completed Target HR: No Max HR: 78 bpm 68% of Maximum Predicted HR: 154 bpm Exercise duration: 00:30 min:sec, 0 Stage Exercise capacity: 1.0METs Max Blood Pressure: 160/80mmHg Blood Pressure response to exercise: normal resting BP - appropriate response Heart Rate response to exercise: appropriate Chest Pain: No, none Angina index: 0 Arrhythmia: No, none ST Change: Yes, NO EKG CHANGES FROM BASELINE Deviation: 0 mm INTERPRETATION Stress EKG Conclusion: NONDIGNOSTIC LEXISCAN DUE TO PRE-EXISTING LBBB NORMAL BP RESPONSE TO LEXISCAN NUCLEAR STUDIES TO READ SEPARATELY EXAM: Myocardial Perfusion REST/STRESS Imaging Protocol The imaging protocol used to acquire images was Rest Tc-99m/stress Tc-99m 1 day Rest Spect myocardial perfusion imaging was performed in supine position 45 minutes following the injection of 12.3 mCi of Tc-99 Myoview. Gated Stress Spect was performed 55 minutes after intravenous 32.1 mci Tc-99 Myoview injection. The images were gated to evaluate regional wall motion and calculate ventricular ejection fraction.Images were reconstructed using backfilter projection method in short horizontal and verticle long axis. Spect slices were generated. RESTING DATA EDV50.33tbUO5.30L/min ESV8.00mlMyocardial Mass98.00g Av. Heart Rate77.00bpm EF84.00% STRESS DATA EDV55.65xrFP1.70L/min ESV11.00mlMyocardial Mass98.00g EF80.00% Regional WT score at stress:0.00 Regional WM score at stress:0.00 Summed WT score at stress:3.00 Av. Heart Rate85.00bpmSummed WM score at stress:0.00 LV Perf. Quant 17 Seg. SSS8.00 17 Seg. SRS5.00 17 Seg. SDS4.00 Stress Defect Extent (% LAD)16.30Rest Defect Extent (% LAD)8.10Rev. Defect Extent (% LAD)4.40 Stress Defect Extent (% LCX)20.00Rest Defect Extent (% LCX)13.80Rev. Defect Extent (% LCX)2.50 Stress Defect Extent (% RCA)2.20Rest Defect Extent (% RCA)10.00Rev. Defect Extent (% RCA)0.00 Stress Defect Extent (% RAYNE)13.70Rest Defect Extent (% RAYNE)11.50Rev. Defect Extent (% RAYNE)2.00 IMPRESSION Normal Myocardial Perfusion exercise stress study Left Ventricle LV Size/Shape: The left ventricle is normal size. LV Function:Left ventricle systolic function is normal. The Ejection Fraction is >70%. Regional Wall Motion:There is normal left ventricular wall motion. Metabolism/Perfusion Defects: There is no scan evidence of reversible defect noted. Conclusion 1. There is no scan evidence of reversible defect noted. 2. Left ventricle systolic function is normal. 3. The Ejection Fraction is >70%.
--- NOTE | 2017-09-02 09:10 | DS ---
REASON FOR ADMISSION: This is a 67-year-old female with history of multiple medical problems, who was admitted through emergency room for frequent vomiting and abdominal pain. COURSE OF HOSPITALIZATION: The patient was admitted to medical floor due to her pain that radiates to the chest, the patient had a cardiology consult done by Dr. Boyer. The patient also had a GI consult done by Dr. Polo. The patient's symptoms gradually resolved and MN was ruled out as well as the patient had previous EGD before. Dr. Polo was reluctant to repeat the EGD that was done about a year ago. Plan was to have outpatient manometric studies for motility disorder. The patient stay also was complicated by lower abdominal pain and she was found to have urinary retention of 630 mL. The patient had a Moser catheter placed and symptoms improved. The patient was discharged in a stable condition to [facility]. FINAL DIAGNOSES: 1. Urinary retention. 2. Gastroesophageal reflux disease. 3. Gastritis. 4. Type 2 diabetes mellitus. Simran Champion MD
== END 2017-08-30 21:58 | DRG 392 ==
LOC: C.ER 21:27 → C.5S 08-26 04:06
PROVIDERS: ADMIT Internal Medicine; ATTEND Internal Medicine
DX: K21.9 Gastro-esophageal reflux disease without esophagitis (principal); R13.10 Dysphagia, unspecified; I10 Essential (primary) hypertension; F32.9 Major depressive disorder, single episode, unspecified; R33.9 Retention of urine, unspecified; E11.9 Type 2 diabetes mellitus without complications; K29.70 Gastritis, unspecified, without bleeding; I44.7 Left bundle-branch block, unspecified; R07.89 Other chest pain; E78.00 Pure hypercholesterolemia, unspecified; F41.9 Anxiety disorder, unspecified; F25.0 Schizoaffective disorder, bipolar type; Z79.84 Long term (current) use of oral hypoglycemic drugs; Z90.710 Acquired absence of both cervix and uterus; Z79.82 Long term (current) use of aspirin; K59.00 Constipation, unspecified

== ENCOUNTER 2018-02-22 13:47 | Emergency (ER) | payer MEDICARE, MEDICAID ==
[2018-02-22 13:48] VITALS: BMI 30.7
[2018-02-22 14:08] VITALS: TEMP 99
--- NOTE | 2018-02-22 14:27 | C.PDOC ---
History Of Present Illness 67 yo female, hx of schizophrenia, htn, dm, presents with low back pain, "difficulty voiding" for last few days. as per family, pt has h/o of urinary retention, uncertain etiology. pt reports no fevers, (-)n/v/d, no other commplaints. pt poor historain Time Seen by Provider: 02/22/18 13:50 Chief Complaint (Nursing): Abdominal Pain Past Medical History Reviewed: Historical Data, Nursing Documentation, Vital Signs Vital Signs: Last Vital Signs Temp 99.0 F 02/22/18 14:04 Pulse 66 02/22/18 16:59 Resp 20 02/22/18 16:59 BP 155/77 H 02/22/18 16:59 Pulse Ox 96 02/22/18 16:59 - Medical History PMH: Hypercholesterolemia, Schizophrenia Denies: Chronic Kidney Disease Surgical History: Endoscopy Family History: States: Unknown Family Hx - Social History Hx Alcohol Use: No Hx Substance Use: No - Immunization History Hx Tetanus Toxoid Vaccination: No Hx Influenza Vaccination: No Hx Pneumococcal Vaccination: No Review Of Systems Gastrointestinal: Positive for: Abdominal Pain Genitourinary: Positive for: Dysuria Physical Exam - Physical Exam Appears: Well, No Acute Distress Skin: Normal Color, Warm, Dry Eye(s): bilateral: Normal Inspection, PERRL, EOMI Nose: Normal Throat: Normal Neck: Normal Cardiovascular: Rhythm Regular Respiratory: Normal Breath Sounds Gastrointestinal/Abdominal: Normal Exam, Soft, Tenderness (mild lower abd), No Guarding, No Rebound Back: Normal Inspection Extremity: Normal ROM ED Course And Treatment - Laboratory Results Result Diagrams: 02/22/18 14:39 02/22/18 14:39 O2 Sat by Pulse Oximetry: 98 Medical Decision Making Medical Decision Making: ?urinary retention, r/o uti, pyelo, stone- labs imaging pending pt reassesed abd soft. ct shows fecal retention. mckenna placed with only 100cc outpt. no e/o of retention. pt feels well for dc advised outptu fu. Disposition - Disposition Referrals: [employer] [Outside] [facility] [Outside] Helio Polo MD [Staff Provider] - Disposition: HOME/ ROUTINE Disposition Time: 07:00 Condition: STABLE Additional Instructions: please follow up with your doctor. return to er with worsneing symptoms or concerns. please see specialist Prescriptions: Polyethylene Glycol 3350 [Miralax] 17 gr PO DAILY PRN #1 ml PRN Reason: Constipation Instructions: Constipation in Adults, Acute Abdomen (Belly Pain) Forms: [facility] (Setswana) - Clinical Impression Clinical Impression: Constipation, Abdominal pain
[2018-02-22 14:42] LABS: BASO % 0.5 % (0.0-2.0); EOS # 0.2 K/uL (0.0-0.7); EOS % 1.8 % (0.0-4.0); HEMOGLOBIN 14.6 g/dL (11.0-16.0); LYMPH # 3.7 K/uL (1.0-4.3); LYMPH % 40.8 % (20.0-40.0); MEAN CELL VOLUME 82.9 fL (81.0-99.0); MEAN CORPUSCULAR HGB CONC 33.8 g/dL (33.0-37.0); MONO # 0.4 K/uL (0.0-0.8); MONO % 4.9 % (0.0-10.0); NEUT # 4.7 K/uL (1.8-7.0); NRBC % 0.1 % (0.0-2.0); RBC 5.2 Mil/uL (3.80-5.20); RED CELL DISTRIBUTION WIDTH 13.4 % (11.5-14.5); WHITE BLOOD COUNT 9.1 K/uL (4.8-10.8)
[2018-02-22 14:51] LABS: PROTHROMBIN TIME 10.7 SECONDS (9.7-12.2)
[2018-02-22 14:55] LABS: ALB/GLOB RATIO 1.4 (1.0-2.1); ALBUMIN 4.3 g/dL (3.5-5.0); ALT/SGPT 50 U/L (9-52); AST/SGOT 27 U/L (14-36); BLOOD UREA NITROGEN 15 mg/dL (7-17); CALCIUM 9.7 mg/dl (8.6-10.4); GFR AFRICAN-AMERICAN > 60; GFR NON-AFRICAN AMERICAN > 60; LIPASE 126 U/L (23-300)
[2018-02-22 15:23] LABS: URINE BILIRUBIN NEGATIVE (NEGATIVE); URINE BLOOD NEGATIVE (NEGATIVE); URINE CLARITY Clear (Clear); URINE COLOR Yellow (YELLOW); URINE GLUCOSE (UA) 3+ mg/dL (Normal); URINE LEUKOCYTE ESTERASE NEG Leu/uL (Negative); URINE PROTEIN NEGATIVE (NEGATIVE); URINE UROBILINOGEN NORMAL mg/dL (0.2-1.0)
--- NOTE | 2018-02-22 16:19 | CT ---
PROCEDURE: CT Abdomen and Pelvis without intravenous contrast HISTORY: Abdominal pain COMPARISON: 08/26/2017 TECHNIQUE: Multiple contiguous axial images were performed through the abdomen and pelvis without the use of intravenous contrast. Subsequently, sagittal and coronal reformatted images were obtained. Radiation dose: Total exam DLP = 700 mGy-cm. This CT exam was performed using one or more of the following dose reduction techniques: Automated exposure control, adjustment of the mA and/or kV according to patient size, and/or use of iterative reconstruction technique. FINDINGS: LOWER THORAX: Atelectasis at the lung bases. Coronary calcifications. Atherosclerotic calcification and plaque within the aorta. LIVER: Unremarkable. No gross lesion or ductal dilatation. GALLBLADDER AND BILE DUCTS: Unremarkable. PANCREAS: Unremarkable. No gross lesion or ductal dilatation. SPLEEN: Unremarkable. ADRENALS: Unremarkable. No mass. KIDNEYS AND URETERS: 2.5 x 1.7 centimeter fat containing lesion within the midpole of the right kidney suggestive for an angiomyolipoma. VASCULATURE: Prominent atherosclerotic calcification and plaque within the aorta. BOWEL: Unremarkable. No obstruction. No gross mural thickening. Moderate fecal retention in the colon. APPENDIX: Unremarkable. Normal appendix. PERITONEUM: Unremarkable. No free fluid. No free air. LYMPH NODES: Few shotty mesenteric lymph nodes. 1.2 centimeter subcutaneous soft tissue nodule within the anterior abdominal subcutaneous soft tissues. BLADDER: Moser catheter within the urinary bladder. REPRODUCTIVE: Unremarkable. BONES: Degenerative changes in the spine. OTHER FINDINGS: None. IMPRESSION: 1. 2.5 x 1.7 centimeter fat containing lesion within the midpole of the right kidney suggestive for an angiomyolipoma. 2. Moderate fecal retention in the colon. 3. 8 millimeter pulmonary nodule within the lateral aspect of the left lower lobe of the lung. 3-6 month interval followup is recommended. Additional findings as above.
[2018-02-22 17:00] VITALS: BP 155/77; PULSE 66; RESP 20
[2018-02-22 19:48] VITALS: O2SAT 98
== END 2018-02-22 17:00 | disposition home or self-care (01) ==
LOC: C.ER 13:47
DX: K59.00 Constipation, unspecified (principal); R10.30 Lower abdominal pain, unspecified
CPT/HCPCS: 74176; 80053; 81001; 83690; 85025; 85610; 85730; 96374; 99285; J1885

== ENCOUNTER 2018-04-11 01:48 | Inpatient (IN) | payer MEDICARE, MEDICAID ==
[2018-04-11 01:49] VITALS: BMI 30.7
--- NOTE | 2018-04-11 02:19 | C.PDOC ---
History Of Present Illness The patient presents to the ED for evaluation of back pain which began after she reportedly sustained a fall earlier today. Patient is able to recall the event and denies loss of consciousness. Patient reports history of chronic urinary incontinence. She denies head injury, abdominal pain, and extremity numbness/weakness. Time Seen by Provider: 04/11/18 02:18 Chief Complaint (Nursing): Back Pain History Per: Patient History/Exam Limitations: no limitations Onset/Duration Of Symptoms: Hrs Current Symptoms Are (Timing): Still Present Quality Of Discomfort: "Pain" Severity: Mild Pain Scale Rating Of: 2 Previous Symptoms: Back Pain Associated Symptoms: Incontinence (chronic, urinary ). denies: New Weakness Exacerbating Factor(s): Nothing Recent travel outside of the [place]: No Additional History Per: Patient Past Medical History Reviewed: Historical Data, Nursing Documentation, Vital Signs Vital Signs: Last Vital Signs Temp 98.2 F 04/11/18 02:14 Pulse 99 H 04/11/18 02:14 Resp 20 04/11/18 02:14 BP 157/89 H 04/11/18 02:14 Pulse Ox 98 04/11/18 03:34 - Medical History PMH: Hypercholesterolemia, Schizophrenia Denies: Chronic Kidney Disease Surgical History: Endoscopy Family History: States: Unknown Family Hx - Social History Hx Alcohol Use: No Hx Substance Use: No - Immunization History Hx Tetanus Toxoid Vaccination: No Hx Influenza Vaccination: No Hx Pneumococcal Vaccination: No Review Of Systems Constitutional: Negative for: Fever, Chills Cardiovascular: Negative for: Chest Pain, Palpitations Respiratory: Negative for: Cough, Shortness of Breath Gastrointestinal: Negative for: Nausea, Vomiting, Abdominal Pain Genitourinary: Positive for: Incontinence (chronic, urinary) Musculoskeletal: Positive for: Back Pain. Negative for: Neck Pain, Leg Pain Skin: Negative for: Rash, Lesions, Jaundice, Bruising Neurological: Negative for: Weakness, Numbness, Headache, Dizziness, Other (LOC ) Physical Exam - Physical Exam Appears: Non-toxic, No Acute Distress Skin: Warm, Dry, No Other (obvious signs of trauma ) Head: Normacephalic Eye(s): bilateral: Normal Inspection Oral Mucosa: Moist Neck: Supple Chest: Symmetrical, No Deformity Cardiovascular: Rhythm Regular Respiratory: No Rales, No Rhonchi, No Wheezing Gastrointestinal/Abdominal: Soft, No Tenderness Back: Paraspinal Tenderness, Other (mild, diffuse tenderness) Extremity: Normal ROM, No Tenderness, Capillary Refill (less than 2 seconds ), No Deformity, No Swelling Neurological/Psych: Oriented x3 Gait: Steady ED Course And Treatment O2 Sat by Pulse Oximetry: 98 (on RA) Pulse Ox Interpretation: Normal Progress Note: CT Lumbar and Thoracic Spine ordered. Reevaluation Time: 05:00 Reassessment Condition: Improved Disposition Counseled Patient/Family Regarding: Studies Performed, Diagnosis, Need For Followup, Rx Given - Disposition Referrals: Simran Champion MD [Staff Provider] - Disposition: HOME/ ROUTINE Disposition Time: 02:19 Condition: FAIR Additional Instructions: Please return if symptoms recur Prescriptions: traMADol [Ultram] 50 mg PO TID PRN #15 tab PRN Reason: Pain, Severe (8-10) Instructions: Low Back Pain (DC), Upper Back Pain (DC), Back Precautions Forms: [facility] (Kinyarwanda) - Clinical Impression Clinical Impression: Low back pain, Thoracic back pain, Fall - Scribe Statement The provider has reviewed the documentation as recorded by the Scribe (Armida Hernandez) Provider Attestation: All medical record entries made by the Scribe were at my direction and personally dictated by me. I have reviewed the chart and agree that the record accurately reflects my personal performance of the history, physical exam, medical decision making, and the department course for this patient. I have also personally directed, reviewed, and agree with the discharge instructions and disposition.
[2018-04-11] MEDS ORDERED: Oxycodone/Acetaminophen 5/325 mg Tab PO STA ×2 (04:11→10:38)
[2018-04-11] MEDS ORDERED: Oxycodone/Acetaminophen 5/325 mg Tab ONE (04:16)
[2018-04-11 06:53] LABS: BASO # 0.1 K/uL (0.0-0.2); EOS # 0.1 K/uL (0.0-0.7); HEMOGLOBIN 13.8 g/dL (11.0-16.0); LYMPH # 4.6 K/uL (1.0-4.3); LYMPH % 31.7 % (20.0-40.0); MEAN CORPUSCULAR HEMOGLOBIN 28.1 pg (27.0-31.0); MEAN CORPUSCULAR HGB CONC 33.9 g/dL (33.0-37.0); MEAN PLATELET VOLUME 8.5 fL (7.2-11.7); MONO # 0.9 K/uL (0.0-0.8); NEUT # 8.8 K/uL (1.8-7.0); NEUT % 60.3 % (50.0-75.0); NRBC % 0.7 % (0.0-2.0); RBC 4.91 Mil/uL (3.80-5.20); RED CELL DISTRIBUTION WIDTH 13.3 % (11.5-14.5); WHITE BLOOD COUNT 14.5 K/uL (4.8-10.8)
[2018-04-11 06:59] LABS: BLOOD UREA NITROGEN 13 mg/dL (7-17); CALCIUM 9.2 mg/dl (8.6-10.4); GFR AFRICAN-AMERICAN > 60; GFR NON-AFRICAN AMERICAN > 60
[2018-04-11 08:16] LABS: SQUAMOUS EPITHIAL 7 /hpf (0-5); URINE BACTERIA RARE (<OCC); URINE BILIRUBIN NEGATIVE (NEGATIVE); URINE BLOOD NEGATIVE (NEGATIVE); URINE CLARITY Hazy (Clear); URINE COLOR Yellow (YELLOW); URINE GLUCOSE (UA) 1+ mg/dL (Normal); URINE LEUKOCYTE ESTERASE 3+ Leu/uL (Negative); URINE PROTEIN NEGATIVE (NEGATIVE); URINE UROBILINOGEN NORMAL mg/dL (0.2-1.0)
--- NOTE | 2018-04-11 09:16 | CT ---
PROCEDURE: CT Lumbar Spine without contrast HISTORY: Fall COMPARISON: None. TECHNIQUE: Axial computed tomography images were obtained of the lumbar spine without the use of intravenous contrast. Coronal and sagittal reformatted images were created and reviewed. Radiation dose: Total exam DLP = 1594.1 mGy-cm. This CT exam was performed using one or more of the following dose reduction techniques: Automated exposure control, adjustment of the mA and/or kV according to patient size, and/or use of iterative reconstruction technique. FINDINGS: VERTEBRAE: Unremarkable. No fracture. Normal alignment. DISCS/SPINAL CANAL/NEURAL FORAMINA: L1-2: Disc space height maintained. No disc herniation or significant disc bulge. Facets also mildly hypertrophic. Central canal and exit foramina adequate. L2-3: Disc space height maintained. No disc herniation or significant disc bulge. Facets also mildly hypertrophic. Central canal and exit foramina adequate. L3-4: Disc space height maintained. No disc herniation or significant disc bulge. Facets also mildly hypertrophic. Central canal and exit foramina adequate. . L4-5: Disc space height maintained. No disc herniation or significant disc bulge. Facets are hypertrophic. Central canal exit foramina adequate. . Helical L5-S1: Disc space height maintained. Minimal broad-based bulge of the posterior annulus. Facet joints are mildly hypertrophic. Central canal and exit foramina adequate. . PARASPINAL SOFT TISSUES: Unremarkable. OTHER FINDINGS: Status post hysterectomy. . Calcified atherosclerotic plaque changes abdominal aorta IMPRESSION: No acute fractures.
--- NOTE | 2018-04-11 09:25 | CT ---
PROCEDURE: CT Thoracic Spine without contrast HISTORY: Fall COMPARISON: Comparison made with CT scan abdomen pelvis 02/22/2018 which partially image the lower thoracic spine TECHNIQUE: Axial computed tomography images were obtained of the thoracic spine without intravenous contrast. Coronal and sagittal reformatted images were created and reviewed. Radiation dose: Total exam DLP = 1027.07 mGy-cm. This CT exam was performed using one or more of the following dose reduction techniques: Automated exposure control, adjustment of the mA and/or kV according to patient size, and/or use of iterative reconstruction technique. FINDINGS: VERTEBRAE: There are no acute compression fractures nor retropulsed fragments. Vertebral bodies exhibit normal stature. Vertebral bodies facets normally aligned. Mild multilevel degenerative spondylosis. Changes include varying degrees of mild anterior disc space narrowing. Small marginal anterolateral osteophyte formation, several of which are bridging also noted. DISCS/SPINAL CANAL/NEURAL FORAMINA: Mild passive Six. PARASPINAL SOFT TISSUES: Unremarkable. OTHER FINDINGS: Atelectasis Mild passive/dependent type atelectasis seen both posterior lung soto. In addition, there also mild ground-glass opacities. IMPRESSION: There are no acute fractures. Mild multilevel degenerative spondylosis. No evidence of canal nor foraminal compromise.
[2018-04-11 09:54] VITALS: RESP 20
[2018-04-11] MEDS ORDERED: Glucagon Recombinant 1 mg Inj IM PRN (15:48)
[2018-04-11] MEDS ORDERED: Dextrose 50% SYRINGE Inj (50 ml) IV PRN (15:48)
[2018-04-11] MEDS: (Novolog) Insulin Aspart, Recombinant 100 u/ml 10 ml vial SC SCH ×2 (16:28→21:44)
--- NOTE | 2018-04-12 01:12 | HP ---
HISTORY: This is a 68-year-old female who is known to me with longstanding psychiatrist history, presented to emergency room after a fall and sustaining back pain. The patient stated that she was walking to open the refrigerator where she was slipped on some water leaked from the refrigerator and it was on the floor. The patient landed on hard back. The patient was evaluated in the emergency room and she was given pain medications but without relief, and the patient was not able to ambulate. Subsequently, the patient was admitted for further management. The patient denied to have any head trauma or any loss of consciousness. Other review of system is negative. ALLERGIES: NO KNOWN ALLERGY. MEDICATIONS: As per MAR reviewed. PAST MEDICAL HISTORY: Hypertension, type 2 diabetes mellitus, longstanding psychiatric history. SOCIAL HISTORY No history of smoking, EtOH, or substance abuse. FAMILY HISTORY: Noncontributory. PHYSICAL EXAMINATION: GENERAL: The patient is in bed, not in any cardiopulmonary distress. VITAL SIGNS: With blood pressure 151/80, temperature 98.8, respiratory rate 20, and pulse 90. HEENT: Pupils equal, reactive to light. Normal-appearing mucosa of the conjunctivae, oropharynx, and nasal membrane mucosa. NECK: Supple. No JVD. No carotid bruit. No lymph node. No thyromegaly. CHEST/LUNGS: Bilateral symmetrical expansion. Good air exchange. No rales, no rhonchi. CARDIOVASCULAR: PMI not localized. S1, S2. No additional sounds. ABDOMEN: Normoactive bowel sounds. No tenderness. No organomegaly. No masses. EXTREMITIES: No cyanosis, no clubbing, no edema. [employer] [facility]: Alert, awake, oriented x2. No neurological deficit could be appreciated. ASSESSMENT: 1. Back fall with back pain, likely contusion, rule out spine fracture. 2. Hypertension. 3. Type 2 diabetes mellitus. PLAN: We will do thoracolumbar x-ray. Pain medications. Physical therapy as tolerated. Resume the patient's home medications. Simran Champion MD
[2018-04-12] MEDS: (Novolog) Insulin Aspart, Recombinant 100 u/ml 10 ml vial SC SCH ×4 (08:25→22:15)
--- NOTE | 2018-04-12 22:00 | PN ---
DATE: 04/12/2018 DAILY PROGRESS NOTE SUBJECTIVE: She is not in any cardiopulmonary distress. The patient had urinary retention and had to insert a Moser catheter. OBJECTIVE: VITAL SIGNS: Blood pressure is 144/79, temperature 98.8, respiratory rate 20, and pulse 87. HEENT: Pupils equal, reactive to light. Normal-appearing mucosa of the conjunctivae, oropharynx and nasal membrane mucosa. NECK: Supple. No JVD. No carotid bruit. No lymph node. No thyromegaly. CHEST AND LUNGS: Bilateral symmetrical expansion. Good air exchange. No rales, no rhonchi. CARDIOVASCULAR: PMI not localized. S1, S2. No additional sounds. ABDOMEN: Normoactive bowel sounds. No tenderness. No organomegaly. No masses. EXTREMITIES: No cyanosis, no clubbing, no edema. AC[employer] CLE[employer]ER: Alert, awake, oriented x2. No neurological deficit could be appreciated. ASSESSMENT: 1. Status post fall with intractable back pain and difficulty ambulation. 2. Urinary retention. 3. Type 2 diabetes mellitus. 4. Hypertension. PLAN: Continue current pain management and Moser catheter. We will start Urecholine and physical therapy and out of bed to chair. Simran Champion MD
[2018-04-13 08:22] LABS: BASO % 0.5 % (0.0-2.0); EOS # 0.2 K/uL (0.0-0.7); EOS % 1.5 % (0.0-4.0); HEMOGLOBIN 13.9 g/dL (11.0-16.0); LYMPH # 4.2 K/uL (1.0-4.3); LYMPH % 39.7 % (20.0-40.0); MEAN CELL VOLUME 82.8 fL (81.0-99.0); MEAN CORPUSCULAR HEMOGLOBIN 28.7 pg (27.0-31.0); MEAN CORPUSCULAR HGB CONC 34.6 g/dL (33.0-37.0); MEAN PLATELET VOLUME 8.1 fL (7.2-11.7); MONO # 0.7 K/uL (0.0-0.8); MONO % 6.2 % (0.0-10.0); NEUT # 5.5 K/uL (1.8-7.0); NEUT % 52.1 % (50.0-75.0); NRBC % 0.1 % (0.0-2.0); RBC 4.86 Mil/uL (3.80-5.20); WHITE BLOOD COUNT 10.7 K/uL (4.8-10.8)
[2018-04-13] MEDS: (Novolog) Insulin Aspart, Recombinant 100 u/ml 10 ml vial SC SCH ×4 (08:35→22:08)
[2018-04-13 08:40] LABS: ALB/GLOB RATIO 1.5 (1.0-2.1); ALBUMIN 4.1 g/dL (3.5-5.0); ALT/SGPT 46 U/L (9-52); AST/SGOT 21 U/L (14-36); BLOOD UREA NITROGEN 9 mg/dL (7-17); CALCIUM 8.8 mg/dl (8.6-10.4); GFR AFRICAN-AMERICAN > 60; GFR NON-AFRICAN AMERICAN > 60
[2018-04-14] MEDS: (Novolog) Insulin Aspart, Recombinant 100 u/ml 10 ml vial SC SCH ×4 (08:41→21:54)
--- NOTE | 2018-04-14 18:42 | PQF ---
PROVIDER RESPONSE TEXT: UTI REVIEWER QUERY TEXT: Clarification of Clinical Diagnostic Findings Please clarify documentation or clinical relevance for the clinical / diagnostic findings or whether those are insignificant or unable to be further specified. Please consider verify and document Urinary Tract Infection, if agreed Unable to determine Other The patient's Clinical Indicators include: 68 Y O F admitted after a fall and sustaining back pain 04/12/18 PN: 1. Status post fall with intractable back pain and difficulty ambulation. 2. Urinary retention. UA-> 3+ Leukocyte Esterase / WBC 50 Urine c/s--> (+) EnterobacterAerogenes Rx: IV Rocephin, Urecholine Query created by: Tessie Sinclair on 04/14/2018 4:43 PM Electronically signed by: Simran Champion MD 04/14/2018 6:39 PM
--- NOTE | 2018-04-15 00:29 | PN ---
DATE: 04/14/2018 SUBJECTIVE: The patient is seen today, 04/14/2018. She is not in any cardiopulmonary distress and pain is controlled on current pain medications. OBJECTIVE: VITAL SIGNS: Blood pressure 166/89, temperature 97.8, respiratory rate 20, and pulse 96. HEENT: Pupils equal and reactive to light. Normal appearing mucosa of the conjunctivae, oropharynx, and nasal membrane mucosa. NECK: Supple. No JVD. No carotid bruit. No lymph node. No thyromegaly. CHEST AND LUNGS: Bilateral symmetrical expansion. Good air exchange. No rales, no rhonchi. CARDIOVASCULAR SYSTEM: PMI not localized. S1, S2. No additional sounds. ABDOMEN: Normoactive bowel sounds. No tenderness. No organomegaly. No masses. EXTREMITIES: No cyanosis, no clubbing, no edema. TRAIN ATTENDANT: Alert, awake, oriented x2. No neurological deficit could be appreciated. ASSESSMENT: 1. Status post fall with intractable back pain and difficulty ambulation. 2. Urinary retention. 3. Type 2 diabetes mellitus. 4. Hypertension. PLAN: 1. Urology consult to decide about the Moser catheter, and continue Bethanechol. 2. Physical therapy and follow the recommendations. 3. DVT prophylaxis. 4. Continue Accu-Cheks with insulin coverage. Simran Champion MD
--- NOTE | 2018-04-15 00:55 | CON ---
DATE: 04/14/2018 COMPREHENSIVE UROLOGIC CONSULTATION TIME OF CONSULTATION: Roughly 12:55 p.m. BRIEF HISTORY: The patient is a 68-year-old female with a psychiatric disorder, diabetes mellitus, and hypertension who presents to [facility] ER with a history of a fall and sustaining low back injury causing severe low back pain requiring admission. The patient also went into acute urinary retention and was found to have a urinary tract infection. The patient has a prior history of recurrent UTIs and also prior history of urinary retention, especially after taking medication such as VESIcare for bladder control. SOCIAL HISTORY: The patient is a nonsmoker and no history of any alcohol use. ALLERGIES: SHE HAS NO KNOWN ALLERGIES TO ANY MEDICATION. PHYSICAL EXAMINATION: Today: VITAL SIGNS: Show a temperature of 97.8, pulse rate is 87, blood pressure 166/89, and respiratory rate 20. O2 saturation on room air is 96%. GENERAL: A well-developed, well-nourished female. Alert, oriented. HEENT EXAMINATION: Grossly within normal limits. NECK: Supple. Thyroid not palpable. ABDOMEN: Soft, nondistended, rotund. No CVA tenderness. No suprapubic tenderness. GENITOURINARY: Moser catheter is draining cloudy urine well. LABORATORY EVALUATION: On 04/13/2018 shows a CBC with a WBC count of 10.7, hemoglobin of 13.9, and hematocrit of 40.2 with a platelet count of 314,000. Her chem profile shows a sodium of 140, potassium 4.1, chloride 100, CO2 28, BUN and creatinine 9 and 0.5 respectively with a GFR of greater than 60. This is on 04/13/2018. Her random glucose today 04/14/2018 was 314. Her urinalysis on 04/11/2018 showed the color was yellow, cloudy, was hazy, pH 5.0, specific gravity 1.011. Protein negative. Glucose 1+. Ketones, blood, nitrite, bilirubin, all negative. Leukocyte esterase 3+, 50 wbc's and 3 rbc's with rare bacteria per high-power field. The urine culture showed Enterobacter aerogenes, heavy growth, sensitive to Bactrim, ertapenem, ciprofloxacin, nitrofurantoin, gentamicin, and Zosyn. The patient currently on Rocephin 1 gm IV piggyback. The culture of blood is resistant to cephazolin and was not tested for Rocephin. PLAN: Plan for this patient is to give the patient a voiding trial in a.m., and the patient can be discharged home on ciprofloxacin 500 mg b.i.d. for one week. Emmanuel Rose MD
[2018-04-15] MEDS: (Novolog) Insulin Aspart, Recombinant 100 u/ml 10 ml vial SC SCH ×3 (08:34→17:20)
[2018-04-15] MEDS ORDERED: Enoxaparin 40 mg Syringe SC SCH (10:00)
[2018-04-15 16:22] VITALS: BP 145/66; PULSE 91; TEMP 98.4; O2SAT 96
--- NOTE | 2018-04-15 17:38 | CP.PCM.PN ---
Subjective - Date & Time of Evaluation Date of Evaluation: 04/15/18 Time of Evaluation: 17:38 - Subjective Subjective: awake, alert, no sob or chest pains, no abdominal pain. Objective - Vital Signs/Intake and Output Vital Signs (last 24 hours): Temp Pulse Resp BP Pulse Ox 98.4 F 91 H 20 145/66 96 04/15/18 16:00 04/15/18 16:00 04/15/18 16:00 04/15/18 16:00 04/15/18 16:00 Intake and Output: 04/15/18 04/15/18 06:59 18:59 Intake Total 420 300 Output Total 825 Balance -405 300 - Medications Medications: Current Medications Aspirin (Ecotrin) 81 mg PO DAILY REPLACED BY [facility] Last Admin: 04/15/18 10:40 Dose: 81 mg Bethanechol Chloride (Urecholine) 25 mg PO BID REPLACED BY [facility] Last Admin: 04/15/18 17:20 Dose: 25 mg Clonazepam (Klonopin) 0.5 mg PO TID REPLACED BY [facility] Last Admin: 04/15/18 17:20 Dose: 0.5 mg Dextrose (Dextrose 50% Inj) 0 ml IV STAT PRN; Protocol PRN Reason: Hypoglycemia Protocol Dextrose (Glutose 15) 0 gm PO ONCE PRN; Protocol PRN Reason: Hypoglycemia Protocol Enoxaparin Sodium (Lovenox) 40 mg SC DAILY REPLACED BY [facility] Last Admin: 04/15/18 10:40 Dose: 40 mg Ergocalciferol (Drisdol 50,000 Intl Units Cap) 1 cap PO QWK REPLACED BY [facility] Glimepiride (Amaryl) 4 mg PO BID REPLACED BY [facility] Last Admin: 04/15/18 17:20 Dose: 4 mg Glucagon (Glucagen Diagnostic Kit) 0 mg IM STAT PRN; Protocol PRN Reason: Hypoglycemia Protocol Ceftriaxone Sodium 1 gm/ (Sodium Chloride) 100 mls @ 100 mls/hr IVPB DAILY REPLACED BY [facility] PRN Reason: Protocol Last Admin: 04/15/18 10:40 Dose: 100 mls/hr Insulin Aspart (Novolog) 0 unit SC ACHS REPLACED BY [facility] PRN Reason: Protocol Last Admin: 04/15/18 17:20 Dose: 2 units Metformin HCl (Glucophage) 500 mg PO BID REPLACED BY [facility] Last Admin: 04/15/18 17:20 Dose: 500 mg Perphenazine (Perphenazine) 8 mg PO HS JANIYA Last Admin: 04/14/18 21:20 Dose: 8 mg Rosuvastatin Calcium (Crestor) 5 mg PO HS JANIYA Last Admin: 04/14/18 21:20 Dose: 5 mg Trihexyphenidyl HCl (Artane) 2 mg PO BID REPLACED BY [facility] Last Admin: 04/15/18 17:20 Dose: 2 mg - Labs Labs: 04/13/18 08:07 04/13/18 08:07 Assessment and Plan - Assessment and Plan (Free Text) Assessment: 68 year old famale admitted with ambylatory dysfunction, urinary retention, UTI , seen and examined. Alert, awake, no complaints of pain or distress. Discussed with DR Champion, plan to discharge to [facility] with mckenna and antibiotics. No acute distress noted.
--- NOTE | 2018-04-16 18:33 | DS ---
REASON FOR ADMISSION: This is a 68-year-old female with history of multiple medical problems who was admitted after a mechanical fall with intractable back pain. COURSE OF HOSPITALIZATION: The patient was admitted to medical floor and she was started on pain medications. The patient had urinary retention and constipation. The patient had a Moser catheter inserted that could not be removed at this time. The patient was started on bethanechol 25 mg twice a day. The patient had urology consult done by Dr. Rose. The patient was resumed on her medications. The patient was started on physical therapy and she is being discharged to [facility] to continue same medications, and we will not give more than Lidoderm patch for pain and we will continue Moser catheter for now. FINAL DIAGNOSES: Fall with intractable pain and difficulty ambulation, urinary retention, type 2 diabetes mellitus. Simran Champion MD
[2018-04-18] MEDS ORDERED: Ergocalciferol 50,000 Intl Units Cap PO SCH (10:00)
== END 2018-04-15 21:15 | DRG 690 ==
LOC: C.ER 01:48 → C.9E 06:23 → C.6T 10:05
PROVIDERS: ADMIT Internal Medicine; ATTEND Internal Medicine
DX: N39.0 Urinary tract infection, site not specified (principal); M54.5 Low back pain; M54.6 Pain in thoracic spine; I10 Essential (primary) hypertension; E78.00 Pure hypercholesterolemia, unspecified; F20.9 Schizophrenia, unspecified; E11.9 Type 2 diabetes mellitus without complications; Z79.4 Long term (current) use of insulin; R33.9 Retention of urine, unspecified; Z91.81 History of falling

== ENCOUNTER 2018-07-28 07:55 | Emergency (ER) | payer MEDICARE, MEDICAID ==
[2018-07-28 07:55] VITALS: BMI 30.7
--- NOTE | 2018-07-28 09:03 | C.PDOC ---
History Of Present Illness 68-year-old female, PMHx includes Hypercholesterolemia and Schizophrenia, is sent to the emergency department from [facility] for CT of the head. Patient fell this morning while walking to the bathroom. She is currently complaining of a mild headache and lower back pain. Pt also notes exacerbation of her chronic neck pain. States she was given unknown medication for pain at the care home after fall. She denies any nausea/vomiting, dizziness, chest pain, or any other associated symptoms. No other complaints at this time. Of note, pt has a Hx of ambulatory dysfunction. - HPI Time Seen by Provider: 07/28/18 07:56 Chief Complaint (Nursing): Trauma History Per: Patient, Other ([facility] transfer papers) History/Exam Limitations: no limitations Injury Occurred (Timing): Just Before Arrival Location Of Injury: Anterior: Head, Posterior: Back (paraspinal), Neck Severity: Moderate Past Medical History Reviewed: Historical Data, Nursing Documentation, Vital Signs Vital Signs: Last Vital Signs Temp 97.5 F L 07/28/18 08:00 Pulse 67 07/28/18 08:00 Resp 20 07/28/18 08:00 BP 157/74 H 07/28/18 08:00 Pulse Ox 99 07/28/18 08:00 - Medical History PMH: Hypercholesterolemia, Schizophrenia Surgical History: Endoscopy Family History: States: No Known Family Hx - Social History Hx Alcohol Use: No Hx Substance Use: No - Immunization History Hx Tetanus Toxoid Vaccination: No Hx Influenza Vaccination: No Hx Pneumococcal Vaccination: No Review Of Systems Cardiovascular: Negative for: Chest Pain, Palpitations Gastrointestinal: Negative for: Nausea, Vomiting Musculoskeletal: Positive for: Neck Pain, Back Pain Neurological: Positive for: Headache Physical Exam - Physical Exam Appears: Non-toxic, No Acute Distress Skin: Warm, Dry, No Rash Head: Other (Contusion to right frontal scalp) Eye(s): bilateral: Normal Inspection, PERRL, EOMI Nose: Normal Oral Mucosa: Moist Lips: Normal Appearing Neck: Normal ROM Chest: Symmetrical Cardiovascular: Rhythm Regular Respiratory: Normal Breath Sounds, No Accessory Muscle Use Gastrointestinal/Abdominal: Soft, No Tenderness Back: Paraspinal Tenderness Extremity: Normal ROM, No Deformity (no abrasions, injuries) Neurological/Psych: Oriented x3, Normal Speech ED Course And Treatment O2 Sat by Pulse Oximetry: 99 Pulse Ox Interpretation: Normal (RA) - CT Scan/US CT head Other Rad Studies (CT/US): Read By Radiologist, Radiology Report Reviewed CT/US Interpretation: Accession No. : [id number]. Patient Name / ID : NARCISA LAWRENCE / [id number]. Exam Date : 07/28/2018 08:54:45 ( Approved ). Study Comment : Sex / Age : F / 68Y. Creator : Randi Toribio MD. Dictator : Randi Toribio MD. Sign Out Clerk : Wire Coiner : Randi Toribio MD. Approver2 : Report Date : 07/28/2018 09:21:12. My Comment : . Date of service: 07/28/2018. PROCEDURE: CT HEAD WITHOUT CONTRAST. HISTORY: head [place], r/o bleed. COMPARISON: None available. TECHNIQUE: Axial computed tomography images were obtained through the head/brain without intravenous contrast. Radiation dose: Total exam DLP = 915.16 mGy-cm. This CT exam was performed using one or more of the following dose reduction techniques: Automated exposure control, adjustment of the mA and/or kV according to patient size, and/or use of iterative reconstruction technique. FINDINGS: HEMORRHAGE: No intracranial hemorrhage. BRAIN: Heath- white matter differentiation is preserved. There is no mass, mass effect or abnormal extra-axial fluid collection. There is no territorial infarction. The midline sagittal structures are normal.There are coarse atherosclerotic calcifications in the cavernous carotid arteries. VENTRICLES: There is mild age-related global parenchymal volume loss and proportionate enlargement of the ventricles and cortical sulci. CALVARIUM: There is no calvarial fracture or extracranial soft tissue swelling. PARANASAL SINUSES: Predominantly clear. MASTOID AIR CELLS: Predominantly clear. OTHER FINDINGS: None. IMPRESSION: No acute intracranial abnormality. Mild age-related global parenchymal volume loss. Progress Note: CT head and XR spine ordered and reviewed. Disposition Counseled Patient/Family Regarding: Studies Performed, Diagnosis, Need For Followup, Rx Given - Disposition Referrals: Simran Champion MD [Staff Provider] - Disposition: HOME/ ROUTINE Disposition Time: 09:50 Condition: STABLE Additional Instructions: FOLLOW UP WITH YOUR DOCTOR IN 1-2 DAYS USE MEDICATION NEEDED FOR PAIN RETURN TO ER IF YOU HAVE WORSENING OR CONCERNING SYMPTOMS Prescriptions: Ibuprofen [Motrin Tab] 600 mg PO Q6 PRN #30 tab PRN Reason: fever/pain Instructions: Closed Head Injury (DC), Lumbar Muscle Strain (DC) Forms: [employer] (Anguillan) Print Language: MACEDONIAN - Clinical Impression Clinical Impression: Ambulatory dysfunction, Closed head injury, Low back sprain - Scribe Statement The provider has reviewed the documentation as recorded by the Scribe (Shital Mir) Provider Attestation: All medical record entries made by the Scribe were at my direction and personally dictated by me. I have reviewed the chart and agree that the record accurately reflects my personal performance of the history, physical exam, medical decision making, and the department course for this patient. I have also personally directed, reviewed, and agree with the discharge instructions and disposition.
--- NOTE | 2018-07-28 09:24 | CT ---
Date of service: 07/28/2018 PROCEDURE: CT HEAD WITHOUT CONTRAST. HISTORY: head injury at [place], r/o bleed COMPARISON: None available. TECHNIQUE: Axial computed tomography images were obtained through the head/brain without intravenous contrast. Radiation dose: Total exam DLP = 915.16 mGy-cm. This CT exam was performed using one or more of the following dose reduction techniques: Automated exposure control, adjustment of the mA and/or kV according to patient size, and/or use of iterative reconstruction technique. FINDINGS: HEMORRHAGE: No intracranial hemorrhage. BRAIN: Heath-white matter differentiation is preserved. There is no mass, mass effect or abnormal extra-axial fluid collection. There is no territorial infarction. The midline sagittal structures are normal.There are coarse atherosclerotic calcifications in the cavernous carotid arteries. VENTRICLES: There is mild age-related global parenchymal volume loss and proportionate enlargement of the ventricles and cortical sulci. CALVARIUM: There is no calvarial fracture or extracranial soft tissue swelling. PARANASAL SINUSES: Predominantly clear. MASTOID AIR CELLS: Predominantly clear. OTHER FINDINGS: None. IMPRESSION: No acute intracranial abnormality. Mild age-related global parenchymal volume loss.
[2018-07-28 10:47] VITALS: BP 126/72; PULSE 75; RESP 18; TEMP 97.4; O2SAT 98
--- NOTE | 2018-07-28 10:48 | RAD ---
Date of service: 07/28/2018 PROCEDURE: Radiographs of the Lumbar Spine. HISTORY: low back pain after fall COMPARISON: Lumbar spine CT performed 04/11/18 FINDINGS: Examination markedly limited due to patient condition. In particular, L5/sacrum poorly visualized. BONES: Alignment appears satisfactory. No listhesis. No acute displaced fracture identified. Multilevel degenerative changes including osteophyte formation. Facet hypertrophy. Osseous demineralization. DISC SPACES: Mild multilevel intervertebral disc space narrowing. OTHER FINDINGS: Dense atherosclerotic calcifications throughout the abdominal aorta. IMPRESSION: Limited study as above. If indicated, cross-sectional imaging may be considered for further evaluation. Degenerative changes. Severe dense atherosclerotic calcifications of the abdominal aorta. Study marked for PA review.
== END 2018-07-28 10:46 | disposition home or self-care (01) ==
LOC: C.ER 07:55
DX: S00.03XA Contusion of scalp, initial encounter (principal); S33.5XXA Sprain of ligaments of lumbar spine, initial encounter; W18.30XA Fall on same level, unspecified, initial encounter; Y93.01 Activity, walking, marching and hiking; Y92.129 Unspecified place in nursing home as the place of occurrence of the external cause; R26.89 Other abnormalities of gait and mobility